=== PATIENT | female | born 1975 | race Caucasian/White ===

== ENCOUNTER 2017-07-10 10:45 | Emergency (ER) | payer SELFPAY ==
[2017-07-10] MEDS ORDERED: Ketorolac 60 MG/2 ML SDV IM ONE (11:08)
--- NOTE | 2017-07-10 11:27 | EDM.PDOC ---
ED HPI GENERAL MEDICAL PROBLEM - General Chief Complaint: Back Pain or Injury Stated Complaint: NOT FEELING WELL Time Seen by Provider: 07/10/17 11:06 - History of Present Illness INITIAL COMMENTS - FREE TEXT/NARRATIVE: HISTORY AND PHYSICAL: History of present illness: Patient 42-year-old female presents status post fall which injured her neck and lower back she denies any head trauma denies loss of consciousness denies numbness weakness denies incontinence or retention bowel or bladder or other concern Review of systems: As per history of present illness and below otherwise all systems reviewed and negative. Past medical history: As per history of present illness and as reviewed below otherwise noncontributory. Surgical history: As per history of present illness and as reviewed below otherwise noncontributory. Social history: No reported history of drug or alcohol abuse. Family history: As per history of present illness and as reviewed below otherwise noncontributory. Physical exam: HEENT: Atraumatic, normocephalic, pupils reactive, negative for conjunctival pallor or scleral icterus, mucous membranes moist, throat clear, neck supple, no vertebral body or point tenderness no cervical radiculopathy, trachea midline. Lungs: Clear to auscultation, breath sounds equal bilaterally, chest nontender. Heart: S1S2, regular, negative for clicks, rubs, or JVD. Abdomen: Soft, nondistended, nontender. Negative for masses or hepatosplenomegaly. Negative for costovertebral tenderness. Pelvis: Stable nontender. Genitourinary: Deferred. Rectal: Deferred. Extremities: Atraumatic, negative for cords or calf pain. Neurovascular unremarkable. Neuro: Awake, alert, oriented. Cranial nerves II through XII unremarkable. Cerebellum unremarkable. Motor and sensory unremarkable throughout. Exam nonfocal. Back: No vertebral body tenderness patient able stand on her toes back on her heels deep tendon reflexes are normal motor and sensory are normal Diagnostics: Cervical spine x-ray lumbosacral spine x-ray Therapeutics: Toradol 60 mg IM Impression: #1 observation status post fall #2 cervical strain #3 lumbar strain/contusion Definitive disposition and diagnosis as appropriate pending reevaluation and review of above. lower back, neck Pain Score (Numeric/FACES): 8 - Related Data Allergies Allergy/AdvReac Type Severity Reaction Status Date / Time No Known Allergies Allergy Verified 07/10/17 11:12 Home Meds: Home Meds Levothyroxine 07/10/17 [History] Metoprolol Succinate [Toprol XL] 07/10/17 [History] Spironolact/Hydrochlorothiazid [Spironolactone-HCTZ 25-25] 1 tab PO DAILY [History] Past Medical History Cardiovascular History: Reports: Hypertension Respiratory History: Reports: Other (See Below) Other Respiratory History: Lung Bx Endocrine/Metabolic History: Reports: Hypothyroidism - Past Surgical History HEENT Surgical History: Reports: Tonsillectomy, Other (See Below) Other HEENT Surgeries/Procedures: Throat GI Surgical History: Reports: Cholecystectomy Female Surgical History: Reports: Tubal Ligation Musculoskeletal Surgical History: Reports: Other (See Below) Other Musculoskeletal Surgeries/Procedures:: R Wrist Social & Family History - Family History Family Medical History: Noncontributory - Tobacco Use Smoking Status *Q: Never Smoker Second Hand Smoke Exposure: No - Caffeine Use Caffeine Use: Reports: Soda, Tea - Recreational Drug Use Recreational Drug Use: No ED ROS GENERAL - Review of Systems Review Of Systems: ROS reveals no pertinent complaints other than HPI. ED EXAM, GENERAL - Physical Exam Exam: See Below (See dictation) Course - Vital Signs Last Recorded V/S: Last Vital Signs Temp 36.4 C 07/10/17 11:10 Pulse 77 07/10/17 11:10 Resp 18 07/10/17 11:10 BP 140/79 07/10/17 11:10 Pulse Ox 97 07/10/17 11:10 - Orders/Labs/Meds Orders: Active Orders 24 hr Category Date Time Status Cervical Spine 2V or 3V [CR] Stat Exams 07/10/17 11:08 Ordered Lumbar Spine 2 or 3V [CR] Stat Exams 07/10/17 11:08 Ordered Meds: Medications Discontinued Medications Generic Name Dose Route Start Last Admin Trade Name Freq PRN Reason Stop Dose Admin Ketorolac Tromethamine 60 mg 07/10/17 11:08 07/10/17 11:21 Toradol IM 07/10/17 11:09 60 mg ONETIME ONE Administration Departure - Departure Time of Disposition: 11:26 Disposition: Home, Self-Care 01 Condition: Good Clinical Impression: Cervical strain, Contusion - Discharge Information Additional Instructions: The following information is given to patients seen in the emergency department who are being discharged to home. This information is to outline your options for follow-up care. We provide all patients seen in our emergency department with a follow-up referral. The need for follow-up, as well as the timing and circumstances, are variable depending upon the specifics of your emergency department visit. If you don't have a primary care physician on staff, we will provide you with a referral. We always advise you to contact your personal physician following an emergency department visit to inform them of the circumstance of the visit and for follow-up with them and/or the need for any referrals to a consulting specialist. The emergency department will also refer you to a specialist when appropriate. This referral assures that you have the opportunity for followup care with a specialist. All of these measure are taken in an effort to provide you with optimal care, which includes your followup. Under all circumstances we always encourage you to contact your private physician who remains a resource for coordinating your care. When calling for followup care, please make the office aware that this follow-up is from your recent emergency room visit. If for any reason you are refused follow-up, please contact the [facility] emergency department at and asked to speak to the emergency department charge nurse. Motrin/Tylenol as directed follow-up primary medical doctor 1-2 days return as needed as discussed - My Orders Last 24 Hours: My Active Orders 07/10/17 11:08 Cervical Spine 2V or 3V [CR] Stat Lumbar Spine 2 or 3V [CR] Stat - Assessment/Plan Last 24 Hours: My Active Orders 07/10/17 11:08 Cervical Spine 2V or 3V [CR] Stat Lumbar Spine 2 or 3V [CR] Stat
--- NOTE | 2017-07-10 11:52 | CR ---
EXAMINATION: Lumbar spine HISTORY: Pain COMPARISON: None TECHNIQUE: AP and lateral views FINDINGS: The lumbar spinal alignment is normal. The Vertebral body heights and disc spaces appear we ll-maintained. There is no fracture or acute osseous abnormality. SI joints are symmetric. IMPRESSION: Grossly unremarkable lumbar spine.
--- NOTE | 2017-07-10 11:52 | CR ---
EXAMINATION: Cervical spine HISTORY: Pain COMPARISON: None TECHNIQUE: AP and lateral views FINDINGS: Straightening of the normal cervical lordosis. Vertebral body heights appear maintained. Mo derate marginal osteophytes are noted. Bone mineralization is normal. Prevertebral soft tissues are n ormal. No fracture or acute osseous abnormality. IMPRESSION: Moderate degenerative changes noted within the mid cervical spine without acute findings.
== END 2017-07-10 12:29 | disposition home or self-care (01) ==
LOC: MW.ED 10:45
DX: S16.1XXA Strain of muscle, fascia and tendon at neck level, initial encounter (principal); S39.012A Strain of muscle, fascia and tendon of lower back, initial encounter; S30.0XXA Contusion of lower back and pelvis, initial encounter; I10 Essential (primary) hypertension; E03.9 Hypothyroidism, unspecified; Z79.899 Other long term (current) drug therapy; W19.XXXA Unspecified fall, initial encounter
CPT/HCPCS: 72040; 72100; 96372; 99283; J1885

== ENCOUNTER 2018-05-11 12:20 | Emergency (ER) | payer SELFPAY ==
[2018-05-11] MEDS ORDERED: methylPREDNISolone Sodium Succinate 40 MG/1 ML SDV IM ONE (12:34)
[2018-05-11] MEDS ORDERED: Albuterol/Ipratropium 3.0-0.5 MG/3 ML Neb Soln NEB ONE (12:34)
--- NOTE | 2018-05-11 12:36 | EDM.PDOC ---
ED HPI GENERAL MEDICAL PROBLEM - General Chief Complaint: Respiratory Problem Stated Complaint: BAD COUGH Time Seen by Provider: 05/11/18 12:31 - History of Present Illness INITIAL COMMENTS - FREE TEXT/NARRATIVE: HISTORY AND PHYSICAL: History of present illness: Patient's 42-year-old female history of sarcoidosis was been somewhat stable for approximately the past year presents with concern of cough congestion shortness of breath over last 24-48 hours she denies influenza immunization denies fever chills nausea or vomiting. Review of systems: As per history of present illness and below otherwise all systems reviewed and negative. Past medical history: As per history of present illness and as reviewed below otherwise noncontributory. Surgical history: As per history of present illness and as reviewed below otherwise noncontributory. Social history: No reported history of drug or alcohol abuse. Family history: As per history of present illness and as reviewed below otherwise noncontributory. Physical exam: HEENT: Atraumatic, normocephalic, pupils reactive, negative for conjunctival pallor or scleral icterus, mucous membranes moist, throat clear, neck supple, nontender, trachea midline. Lungs: Coarse with inspiratory and expiratory wheezing noted no crackles, breath sounds equal bilaterally, chest nontender. Heart: S1S2, regular, negative for clicks, rubs, or JVD. Abdomen: Soft, nondistended, nontender. Negative for masses or hepatosplenomegaly. Negative for costovertebral tenderness. Pelvis: Stable nontender. Genitourinary: Deferred. Rectal: Deferred. Extremities: Atraumatic, negative for cords or calf pain. Neurovascular unremarkable. Neuro: Awake, alert, oriented. Cranial nerves II through XII unremarkable. Cerebellum unremarkable. Motor and sensory unremarkable throughout. Exam nonfocal. Diagnostics: Influenza screen chest x-ray Therapeutics: Albuterol ipratropium nebulizer Solu-Medrol 125 mg IM Impression: #1 reactive airway disease #2 history of sarcoidosis Definitive disposition and diagnosis as appropriate pending reevaluation and review of above. - Related Data Allergies Allergy/AdvReac Type Severity Reaction Status Date / Time No Known Allergies Allergy Verified 07/10/17 11:12 Home Meds: Home Meds Levothyroxine 20 mg PO DAILY 07/10/17 [History] Metoprolol Succinate [Toprol XL] 40 mg PO DAILY 07/10/17 [History] Spironolact/Hydrochlorothiazid [Spironolactone-HCTZ 25-25] 1 tab PO DAILY [History] Past Medical History Cardiovascular History: Reports: Hypertension Respiratory History: Reports: Other (See Below) Other Respiratory History: Lung Bx Endocrine/Metabolic History: Reports: Hypothyroidism - Past Surgical History HEENT Surgical History: Reports: Tonsillectomy, Other (See Below) Other HEENT Surgeries/Procedures: Throat GI Surgical History: Reports: Cholecystectomy Female Surgical History: Reports: Tubal Ligation Musculoskeletal Surgical History: Reports: Other (See Below) Other Musculoskeletal Surgeries/Procedures:: R Wrist Social & Family History - Family History Family Medical History: Noncontributory - Caffeine Use Caffeine Use: Reports: Soda, Tea ED ROS GENERAL - Review of Systems Review Of Systems: ROS reveals no pertinent complaints other than HPI. ED EXAM, GENERAL - Physical Exam Exam: See Below (See dictation) Course - Vital Signs Last Recorded V/S: Last Vital Signs Temp 36.7 C 05/11/18 12:32 Pulse 91 05/11/18 12:32 Resp 18 05/11/18 12:32 BP 157/83 H 05/11/18 12:32 Pulse Ox 98 05/11/18 12:32 - Orders/Labs/Meds Orders: Active Orders 24 hr Category Date Time Status RT Aerosol Therapy [RC] ASDIRECTED Care 05/11/18 12:35 Active Meds: Medications Discontinued Medications Generic Name Dose Route Start Last Admin Trade Name Ulyssesq PRN Reason Stop Dose Admin Albuterol/Ipratropium 3 ml 05/11/18 12:34 05/11/18 12:40 Duoneb 3.0-0.5 Mg/3 Ml NEB 05/11/18 12:35 3 ml ONETIME ONE Administration Methylprednisolone Sodium Succinate 125 mg 05/11/18 12:34 05/11/18 12:44 Solu-Medrol IM 05/11/18 12:35 Not Given ONETIME ONE Methylprednisolone Sodium Succinate 125 mg 05/11/18 12:40 05/11/18 12:44 Solu-Medrol IVPUSH 05/11/18 12:41 Not Given ONETIME ONE Methylprednisolone Sodium Succinate 125 mg 05/11/18 12:44 05/11/18 12:53 Solu-Medrol IM 05/11/18 12:45 125 mg ONETIME ONE Administration Departure - Departure Time of Disposition: 13:44 Disposition: Home, Self-Care 01 Condition: Good Clinical Impression: Reactive airway disease, History of sarcoidosis - Discharge Information Referrals: Deandra Weaver NP [Primary Care Provider] - Forms: ED Department Discharge Additional Instructions: The following information is given to patients seen in the emergency department who are being discharged to home. This information is to outline your options for follow-up care. We provide all patients seen in our emergency department with a follow-up referral. The need for follow-up, as well as the timing and circumstances, are variable depending upon the specifics of your emergency department visit. If you don't have a primary care physician on staff, we will provide you with a referral. We always advise you to contact your personal physician following an emergency department visit to inform them of the circumstance of the visit and for follow-up with them and/or the need for any referrals to a consulting specialist. The emergency department will also refer you to a specialist when appropriate. This referral assures that you have the opportunity for followup care with a specialist. All of these measure are taken in an effort to provide you with optimal care, which includes your followup. Under all circumstances we always encourage you to contact your private physician who remains a resource for coordinating your care. When calling for followup care, please make the office aware that this follow-up is from your recent emergency room visit. If for any reason you are refused follow-up, please contact the [facility] emergency department at and asked to speak to the emergency department charge nurse. Albuterol Medrol as prescribed follow-up primary medical doctor return as needed as discussed - My Orders Last 24 Hours: My Active Orders 05/11/18 12:35 RT Aerosol Therapy [RC] ASDIRECTED - Assessment/Plan Last 24 Hours: My Active Orders 05/11/18 12:35 RT Aerosol Therapy [RC] ASDIRECTED
[2018-05-11] MEDS ORDERED: methylPREDNISolone Sodium Succinate 125 MG/2 ML SDV IVPUSH ONE (12:40)
[2018-05-11] MEDS ORDERED: methylPREDNISolone Sodium Succinate 125 MG/2 ML SDV IM ONE (12:44)
--- NOTE | 2018-05-11 13:29 | CR ---
INDICATION: PAIN/SOB TECHNIQUE: Chest 1 view. COMPARISON: None FINDINGS: Cardiovascular and mediastinum: Heart size and vasculature are normal in caliber and appearance. Mediastinum is within normal limits. Lungs and pleural space: Lungs are clear. No sign of infiltrate or mass. No sign of pleural effusion. No pneumothorax. Bones and soft tissues: No significant findings. IMPRESSION: Unremarkable chest. Dictated by: James Melgar MD @ 05/11/2018 13:28:46 (Electronically Signed)
== END 2018-05-11 14:31 | disposition home or self-care (01) ==
LOC: MW.ED 12:20
DX: J45.909 Unspecified asthma, uncomplicated (principal); I10 Essential (primary) hypertension; Z79.899 Other long term (current) drug therapy
CPT/HCPCS: 71045; 87804; 94640; 96372; 99284; J2930; J7620-GY

== ENCOUNTER 2018-10-12 16:35 | Emergency (ER) | payer BC, OTHER ==
[2018-10-12] MEDS ORDERED: Tetracaine HCl/PF 0.5% 4 ML Bottle ONE (16:51)
--- NOTE | 2018-10-12 16:59 | EDM.PDOC ---
ED HPI GENERAL MEDICAL PROBLEM - General Chief Complaint: ENT Problem Stated Complaint: RT EYE ISSUE Time Seen by Provider: 10/12/18 16:50 - History of Present Illness INITIAL COMMENTS - FREE TEXT/NARRATIVE: HISTORY AND PHYSICAL: History of present illness: Patient's 43-year-old white female presents with concern of irritation in her right eye she was working on a car earlier and was blowing significantly she feels this may have gotten something in her eye she did remove her contacts and still is residual irritation she does not have a foreign body sensation. Review of systems: As per history of present illness and below otherwise all systems reviewed and negative. Past medical history: As per history of present illness and as reviewed below otherwise noncontributory. Surgical history: As per history of present illness and as reviewed below otherwise noncontributory. Social history: No reported history of drug or alcohol abuse. Family history: As per history of present illness and as reviewed below otherwise noncontributory. Physical exam: HEENT: Atraumatic, normocephalic, pupils reactive, negative for conjunctival pallor or scleral icterus, mucous membranes moist, throat clear, neck supple, nontender, trachea midline. Conjunctiva is injected anterior chambers clear there is no evidence of foreign body lid eversion was negative for foreign body corneal staining was negative for abrasion Lungs: Clear to auscultation, breath sounds equal bilaterally, chest nontender. Heart: S1S2, regular, negative for clicks, rubs, or JVD. Abdomen: Soft, nondistended, nontender. Negative for masses or hepatosplenomegaly. Negative for costovertebral tenderness. Pelvis: Stable nontender. Genitourinary: Deferred. Rectal: Deferred. Extremities: Atraumatic, negative for cords or calf pain. Neurovascular unremarkable. Neuro: Awake, alert, oriented. Cranial nerves II through XII unremarkable. Cerebellum unremarkable. Motor and sensory unremarkable throughout. Exam nonfocal. Diagnostics: Corneal staining Therapeutics: Tetracaine irrigation erythromycin ophthalmic ointment Impression: #1 conjunctivitis Definitive disposition and diagnosis as appropriate pending reevaluation and review of above. Right Eye Pain Score (Numeric/FACES): 10 - Related Data Allergies Allergy/AdvReac Type Severity Reaction Status Date / Time No Known Allergies Allergy Verified 07/10/17 11:12 Home Meds: Home Meds Levothyroxine 20 mg PO DAILY 07/10/17 [History] Metoprolol Succinate [Toprol XL] 40 mg PO DAILY 07/10/17 [History] Past Medical History Cardiovascular History: Reports: Hypertension Respiratory History: Reports: Other (See Below) Other Respiratory History: Lung Bx Endocrine/Metabolic History: Reports: Hypothyroidism - Past Surgical History HEENT Surgical History: Reports: Tonsillectomy, Other (See Below) Other HEENT Surgeries/Procedures: Throat GI Surgical History: Reports: Cholecystectomy Female Surgical History: Reports: Tubal Ligation Musculoskeletal Surgical History: Reports: Other (See Below) Other Musculoskeletal Surgeries/Procedures:: R Wrist Social & Family History - Family History Family Medical History: Noncontributory - Tobacco Use Smoking Status *Q: Never Smoker Second Hand Smoke Exposure: No - Caffeine Use Caffeine Use: Reports: Soda - Recreational Drug Use Recreational Drug Use: No ED ROS GENERAL - Review of Systems Review Of Systems: ROS reveals no pertinent complaints other than HPI. ED EXAM, GENERAL - Physical Exam Exam: See Below (See dictation) Course - Vital Signs Last Recorded V/S: Last Vital Signs Temp 36.2 C 10/12/18 16:38 Pulse 90 10/12/18 16:38 Resp 18 10/12/18 16:38 BP 155/92 H 10/12/18 16:38 Pulse Ox 95 10/12/18 16:38 - Orders/Labs/Meds Meds: Medications Discontinued Medications Generic Name Dose Route Start Last Admin Trade Name Trupti PRN Reason Stop Dose Admin Tetracaine HCl Confirm 10/12/18 16:51 Tetracaine 0.5% Steri-Unit Katie Administered 10/12/18 16:52 Dose 4 ml .ROUTE .STK-MED ONE Departure - Departure Time of Disposition: 16:58 Disposition: Home, Self-Care 01 Condition: Good Clinical Impression: Conjunctivitis - Discharge Information Referrals: Deandra Weaver NP [Primary Care Provider] - Additional Instructions: The following information is given to patients seen in the emergency department who are being discharged to home. This information is to outline your options for follow-up care. We provide all patients seen in our emergency department with a follow-up referral. The need for follow-up, as well as the timing and circumstances, are variable depending upon the specifics of your emergency department visit. If you don't have a primary care physician on staff, we will provide you with a referral. We always advise you to contact your personal physician following an emergency department visit to inform them of the circumstance of the visit and for follow-up with them and/or the need for any referrals to a consulting specialist. The emergency department will also refer you to a specialist when appropriate. This referral assures that you have the opportunity for followup care with a specialist. All of these measure are taken in an effort to provide you with optimal care, which includes your followup. Under all circumstances we always encourage you to contact your private physician who remains a resource for coordinating your care. When calling for followup care, please make the office aware that this follow-up is from your recent emergency room visit. If for any reason you are refused follow-up, please contact the [facility] emergency department at and asked to speak to the emergency department charge nurse. [facility] [address] [place] [address] Erythromycin ophthalmic ointment as directed no contact lenses until resolution and ophthalmology follow-up follow-up private medical doctor/ophthalmology as discussed
[2018-10-12] MEDS ORDERED: Tetracaine HCl/PF 0.5% 4 ML Bottle EYERT STA (17:03)
[2018-10-12] MEDS ORDERED: Erythromycin Base 0.5% Ophth Oint 1 GM Tube EYERT ONE (17:03)
== END 2018-10-12 17:18 | disposition home or self-care (01) ==
LOC: MW.ED 16:35
DX: H10.9 Unspecified conjunctivitis (principal); I10 Essential (primary) hypertension; E03.9 Hypothyroidism, unspecified; Z79.899 Other long term (current) drug therapy
CPT/HCPCS: 99283; A9270

== ENCOUNTER 2019-07-08 10:12 | Emergency (ER) | payer BC ==
[2019-07-08] MEDS ORDERED: Albuterol 8 GM Inhaler INH ONE (10:14)
--- NOTE | 2019-07-08 10:39 | EDM.PDOC ---
ED HPI GENERAL MEDICAL PROBLEM - General Chief Complaint: Respiratory Problem Stated Complaint: COUGHING Time Seen by Provider: 07/08/19 10:28 Source of Information: Reports: Patient History Limitations: Reports: No Limitations - History of Present Illness INITIAL COMMENTS - FREE TEXT/NARRATIVE: Patient is a 43-year-old female with a past medical history of sarcoidosis presenting with a chief complaint of cough and shortness of breath. Patient states that she had some mild coughing last week and was tested for coronavirus which came back negative. However, she did never have fevers until last night. Patient states she felt like she was on fire and had worsening of her cough and shortness of breath. Patient went to the clinic this morning and was sent to the emergency room for tachypnea. Patient states she has no sore throat or body aches. Patient denies any vomiting or diarrhea. Patient denies any recent travel or sick contact exposure. Pmhx: Sarcoidosis Pshx: None Family Hx: noncontributory Smoking history? no Etoh use? none Drug use? none In addition to that documented in the HPI above, the additional ROS was obtained : Constitutional: Per HPI Eyes: Denies vision changes ENMT: Denies sore throat CV: Denies chest pain Resp: Per HPI GI: Denies vomiting or diarrhea : Denies painful urination MSK: Denies recent trauma Skin: Denies new rashes Neuro: Denies new numbness or tingling or weakness Endocrine: Denies unexpected weight loss Heme: Denies bleeding disorders I have reviewed the triage vital signs Const: Well nourished, well developed, appears stated age Eyes: PERRL, no conjunctival injection HENT: NCAT, Neck supple without meningismus CV: RRR, Warm, well-perfused extremities RESP: Slight increased work of breathing with no accessory muscle usage. Some scant bilateral wheezes. GI: soft, non-tender, non-distended, no masses MSK: No gross deformities appreciated Skin: Warm, dry. No rashes Neuro: Alert, sales support advisor II-XII grossly intact. Sensation and motor function of extremities grossly intact. Psych: Appropriate mood and affect Assessment and plan: Patient is a 43-year-old female presenting with shortness of breath and cough. Patient afebrile in the emergency department. Patient's labs were reviewed with elevation of CRP and slight leukopenia. There is no evidence of lymphopenia. Patient had a negative chest x-ray. Patient was rating breathing at a rate of 18-20 at rest and slight increased work of breathing to 20-24 which is complicated by coughing fits. Patient was never hypoxic with ambulation or with rest. Patient never required supplemental oxygenation. Broad differential diagnosis considered however patient is PERC negative. Considerations for community-acquired pneumonia versus viral pneumonia are also strong possibilities however given the patient is not hypoxic and is not demonstrating significant increasing work of breathing, patient is a candidate for outpatient management. Shared decision-making was used with observation in the hospital versus outpatient management, risks and benefits were explained. Patient preferred being treated as an outpatient and states she will come back immediately if symptoms worsen. It is possible this is related to the coronavirus however testing was negative last week. I did repeat testing given that the patient spiked fevers last night and is at slightly higher risk with the sarcoidosis. All questions were addressed and answered. Chest Pain Score (Numeric/FACES): 6 - Related Data Allergies Allergy/AdvReac Type Severity Reaction Status Date / Time adhesive tape Allergy Blisters Verified 07/08/19 10:25 Home Meds: Home Meds Levothyroxine [Synthroid] 50 mcg PO ACBREAKFAST 11/28/18 [History] Lisinopril 20 mg PO DAILY 11/28/18 [History] hydroCHLOROthiazide [Hydrochlorothiazide] 25 mg PO DAILY 11/28/18 [History] Albuterol [Ventolin HFA] 8 gm INH ASDIRECTED 07/08/19 [History] Azithromycin 250 mg PO DAILY #5 tablet 07/08/19 [Rx] Benzonatate [Tessalon Perle] 100 mg PO BID #30 capsule 07/08/19 [Rx] metFORMIN [Glucophage] 500 mg PO DAILY 07/08/19 [History] Past Medical History Cardiovascular History: Reports: Hypertension Musculoskeletal History: Reports: Fracture Endocrine/Metabolic History: Reports: Hypothyroidism - Infectious Disease History Infectious Disease History: Reports: Chicken Pox - Past Surgical History HEENT Surgical History: Reports: Tonsillectomy Respiratory Surgical History: Reports: Lung Biopsies GI Surgical History: Reports: Cholecystectomy Social & Family History - Family History Family Medical History: Noncontributory - Caffeine Use Caffeine Use: Reports: None ED ROS GENERAL - Review of Systems Review Of Systems: See Below ED EXAM, GENERAL - Physical Exam Exam: See Below Course - Vital Signs Last Recorded V/S: Last Vital Signs Temp 36.0 C L 07/08/19 10:19 Pulse 98 07/08/19 10:19 Resp 26 H 07/08/19 10:19 BP 117/84 07/08/19 10:19 Pulse Ox 98 07/08/19 10:19 - Orders/Labs/Meds Orders: Active Orders 24 hr Category Date Time Status RT Post Treatment Assessment [RC] Click to Edit Care 07/08/19 10:15 Active RT Pre-Treatment Assessment [RC] Click to Edit Care 07/08/19 10:15 Active CORONAVIRUS COVID-19 PCR PHL [MREF] Stat Lab 07/08/19 10:35 Received CULTURE BLOOD [BC] Stat Lab 07/08/19 10:35 Received CULTURE BLOOD [BC] Stat Lab 07/08/19 11:00 Received PROCALCITONIN [REF] Stat Lab 07/08/19 10:35 Received Blood Culture x2 Reflex Set [OM.PC] Stat Oth 07/08/19 10:24 Ordered Isolation [COMM] Routine Oth 07/08/19 10:27 Active Labs: Laboratory Tests 07/08/19 07/08/19 Range/Units 10:35 10:35 WBC 3.24 L (4.0-11.0) K/uL RBC 4.35 (4.30-5.90) M/uL Hgb 11.4 L (12.0-16.0) g/dL Hct 35.9 L (36.0-46.0) % MCV 82.5 (80.0-98.0) fL MCH 26.2 L (27.0-32.0) pg MCHC 31.8 (31.0-37.0) g/dL RDW Std Deviation 46.7 (28.0-62.0) fl RDW Coeff of Willie 15 (11.0-15.0) % Plt Count 290 (150-400) K/uL MPV 10.10 (7.40-12.00) fL Add Manual Diff YES Neutrophils % (Manual) 22 L (48.0-80.0) % Band Neutrophils % 2 % Lymphocytes % (Manual) 44 H (16.0-40.0) % Monocytes % (Manual) 25 H (0.0-15.0) % Eosinophils % (Manual) 6 (0.0-7.0) % Basophils % (Manual) 1 (0.0-1.5) % Nucleated RBC % 0.0 /100WBC Absolute Seg Neuts 0.7 L (1.4-5.7) Band Neutrophils # 0.1 Lymphocytes # (Manual) 1.4 (0.6-2.4) Monocytes # (Manual) 0.8 (0.0-0.8) Eosinophils # (Manual) 0.2 (0.0-0.7) Basophils # (Manual) 0.0 (0.0-0.1) Nucleated RBCs # 0 K/uL Sodium 139 (136-145) mmol/L Potassium 4.1 (3.5-5.1) mmol/L Chloride 104 (98-107) mmol/L Carbon Dioxide 23.9 (21.0-32.0) mmol/L BUN 13 (7.0-18.0) mg/dL Creatinine 0.7 (0.6-1.0) mg/dL Est Cr Clr Drug Dosing 85.72 mL/min Estimated GFR (MDRD) > 60.0 ml/min Glucose 91 (74-106) mg/dL Calcium 8.7 (8.5-10.1) mg/dL Total Bilirubin 0.4 (0.2-1.0) mg/dL AST 36 (15-37) IU/L ALT 34 (14-63) IU/L Alkaline Phosphatase 64 (46-116) U/L Troponin I < 0.050 (0.000-0.056) ng/mL C-Reactive Protein 4.50 H (0.00-0.90) mg/dL Total Protein 7.2 (6.4-8.2) g/dL Albumin 3.8 (3.4-5.0) g/dL Globulin 3.4 (2.6-4.0) g/dL Albumin/Globulin Ratio 1.1 (0.9-1.6) Meds: Medications Discontinued Medications Generic Name Dose Route Start Last Admin Trade Name Freq PRN Reason Stop Dose Admin Albuterol 2 gm 07/08/19 10:14 07/08/19 10:29 Ventolin Hfa INH 07/08/19 10:15 2 gm ONETIME ONE Administration Departure - Departure Time of Disposition: 12:28 Disposition: Home, Self-Care 01 Clinical Impression: Viral pneumonia - Discharge Information Prescriptions: Azithromycin 250 mg PO DAILY #5 tablet Benzonatate [Tessalon Perle] 100 mg PO BID #30 capsule Instructions: Viral Respiratory Infection Referrals: PCP,Unobtain [Primary Care Provider] - Forms: ED Department Discharge Additional Instructions: The following information is given to patients seen in the emergency department who are being discharged to home. This information is to outline your options for follow-up care. We provide all patients seen in our emergency department with a follow-up referral. The need for follow-up, as well as the timing and circumstances, are variable depending upon the specifics of your emergency department visit. If you don't have a primary care physician on staff, we will provide you with a referral. We always advise you to contact your personal physician following an emergency department visit to inform them of the circumstance of the visit and for follow-up with them and/or the need for any referrals to a consulting specialist. The emergency department will also refer you to a specialist when appropriate. This referral assures that you have the opportunity for follow-up care with a specialist. All of these measure are taken in an effort to provide you with optimal care, which includes your follow-up. Under all circumstances we always encourage you to contact your private physician who remains a resource for coordinating your care. When calling for follow-up care, please make the office aware that this follow-up is from your recent emergency room visit. If for any reason you are refused follow-up, please contact the [facility] Emergency Department at and asked to speak to the emergency department charge nurse. Sepsis Event Note - Evaluation Sepsis Screening Result: Possible Sepsis Risk - Focused Exam Vital Signs: Vital Signs Temp Pulse Resp BP Pulse Ox 07/08/19 10:19 36.0 C L 98 26 H 117/84 98 Date Exam was Performed: 07/08/19 Time Exam was Performed: 12:25 - My Orders Last 24 Hours: My Active Orders 07/08/19 10:15 RT Post Treatment Assessment [RC] Click to Edit RT Pre-Treatment Assessment [RC] Click to Edit 07/08/19 10:24 Blood Culture x2 Reflex Set [OM.PC] Stat 07/08/19 10:27 Isolation [COMM] Routine 07/08/19 10:35 CORONAVIRUS COVID-19 PCR PHL [MREF] Stat CULTURE BLOOD [BC] Stat PROCALCITONIN [REF] Stat 07/08/19 11:00 CULTURE BLOOD [BC] Stat - Assessment/Plan Last 24 Hours: My Active Orders 07/08/19 10:15 RT Post Treatment Assessment [RC] Click to Edit RT Pre-Treatment Assessment [RC] Click to Edit 07/08/19 10:24 Blood Culture x2 Reflex Set [OM.PC] Stat 07/08/19 10:27 Isolation [COMM] Routine 07/08/19 10:35 CORONAVIRUS COVID-19 PCR PHL [MREF] Stat CULTURE BLOOD [BC] Stat PROCALCITONIN [REF] Stat 07/08/19 11:00 CULTURE BLOOD [BC] Stat
[2019-07-08 11:29] LABS: BLOOD UREA NITROGEN,BUN 13 mg/dL (7.0-18.0); CARBON DIOXIDE,CO2 23.9 mmol/L (21.0-32.0); CHLORIDE,CL 104 mmol/L (98-107); GLUCOSE RANDOM 91 mg/dL (74-106); POTASSIUM,K 4.1 mmol/L (3.5-5.1); SODIUM,NA 139 mmol/L (136-145)
--- NOTE | 2019-07-08 11:37 | CR ---
Chest: Portable view of the chest was obtained. Comparison: No prior chest imaging is available. Heart size and mediastinum are within normal limits. Lungs are clear with no acute parenchymal change. Bony structures are grossly intact. Impression: 1. Nothing acute is appreciated on portable chest x-ray. Diagnostic code #1 This report was dictated in MDT
== END 2019-07-08 12:33 | disposition home or self-care (01) ==
LOC: MERGE 10:12 → MW.ED 10:12
DX: J12.9 Viral pneumonia, unspecified (principal); I10 Essential (primary) hypertension; E03.9 Hypothyroidism, unspecified; Z79.899 Other long term (current) drug therapy
CPT/HCPCS: 36415; 71045; 80053; 84145; 84484; 85025; 86140; 87040; 87804; 99285; A9270; U0001

== ENCOUNTER 2019-07-10 15:48 | Emergency (ER) | payer BC ==
[2019-07-10] MEDS ORDERED: Sodium Chloride 0.9% 1,000 ML IV ONE (16:09)
--- NOTE | 2019-07-10 16:13 | EDM.PDOC ---
ED HPI GENERAL MEDICAL PROBLEM - General Chief Complaint: Respiratory Problem Stated Complaint: DRY COUGH / SOB Time Seen by Provider: 07/10/19 16:13 Source of Information: Reports: Patient History Limitations: Reports: No Limitations - History of Present Illness INITIAL COMMENTS - FREE TEXT/NARRATIVE: Patient is a 44-year-old female presenting with chief complaint of cough and shortness of breath. Patient was seen here 2 days ago for similar symptoms. Patient reports compliance with the Tessalon and the Zithromax without any improvement of her symptoms. In fact, her shortness of breath is continued to worsen. She denies any vomiting or diarrhea. Reports subjective fevers. Patient has been tested twice for coronavirus which have both been negative. Patient was on the phone with her primary care physician who urged her to come into the emergency department today. Pmhx: Sarcoidosis Pshx: None Family Hx: noncontributory Smoking history? no Etoh use? none Drug use? none In addition to that documented in the HPI above, the additional ROS was obtained : Constitutional: Per HPI Eyes: Denies vision changes ENMT: Denies sore throat CV: Denies chest pain Resp: Per HPI GI: Denies vomiting or diarrhea : Denies painful urination MSK: Denies recent trauma Skin: Denies new rashes Neuro: Denies new numbness or tingling or weakness Endocrine: Denies unexpected weight loss Heme: Denies bleeding disorders I have reviewed the triage vital signs Const: Well nourished, well developed, appears stated age Eyes: PERRL, no conjunctival injection HENT: NCAT, Neck supple without meningismus CV: RRR, Warm, well-perfused extremities RESP: Mildly tachypneic. CTAB, no accessory muscle usage GI: soft, non-tender, non-distended, no masses MSK: No gross deformities appreciated Skin: Warm, dry. 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 Sensation and motor function of extremities grossly intact. Psych: Appropriate mood and affect Assessment and plan: Patient here is 44-year-old female complaining of cough. Shortness of breath is clarified on reexamination. Patient states she primarily feels this at night when she is lying flat on her back. Patient only has 1 pillow. Patient does feel a lot of postnasal drip going to the back of her throat making her cough. Coughing with makes her short of breath. Patient not short of breath when she does not cough. Performed chest x-ray and CT scan which did not demonstrate evidence of pneumonia. Patient's coronavirus has been negative twice. Likely upper respiratory tract infection. Patient given supportive release and instructed on symptomatic care. - Related Data Allergies Allergy/AdvReac Type Severity Reaction Status Date / Time adhesive tape Allergy Blisters Verified 07/08/19 10:25 Home Meds: Home Meds Levothyroxine 20 mg PO DAILY 07/10/17 [History] Metoprolol Succinate [Toprol XL] 40 mg PO DAILY 07/10/17 [History] Levothyroxine [Synthroid] 50 mcg PO ACBREAKFAST 11/28/18 [History] Lisinopril 20 mg PO DAILY 11/28/18 [History] hydroCHLOROthiazide [Hydrochlorothiazide] 25 mg PO DAILY 11/28/18 [History] Albuterol [Ventolin HFA] 8 gm INH ASDIRECTED 07/08/19 [History] Azithromycin 250 mg PO DAILY #5 tablet 07/08/19 [Rx] Benzonatate [Tessalon Perle] 100 mg PO BID #30 capsule 07/08/19 [Rx] metFORMIN [Glucophage] 500 mg PO DAILY 07/08/19 [History] Codeine Phosphate/Guaifenesin [Guaifen-Codeine 200-20 mg/10Ml] 10 ml PO QPM # 100 liquid 07/10/19 [Rx] Oxymetazoline [Nasal Decongestant] 15 ml BIANCA Q12HR #1 bottle 07/10/19 [Rx] guaiFENesin [Mucinex] 600 mg PO BID #20 tab.er.12h 07/10/19 [Rx] Past Medical History Cardiovascular History: Reports: Hypertension Other Respiratory History: 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." Musculoskeletal History: Reports: Fracture Endocrine/Metabolic History: Reports: Hypothyroidism - Infectious Disease History Infectious Disease History: Reports: Chicken Pox - Past Surgical History HEENT Surgical History: Reports: Tonsillectomy Respiratory Surgical History: Reports: Lung Biopsies GI Surgical History: Reports: Cholecystectomy Social & Family History - Family History Family Medical History: Noncontributory - Tobacco Use Smoking Status *Q: Never Smoker - Caffeine Use Caffeine Use: Reports: None - Recreational Drug Use Recreational Drug Use: No ED ROS GENERAL - Review of Systems Review Of Systems: See Below ED EXAM, GENERAL - Physical Exam Exam: See Below Course - Vital Signs Last Recorded V/S: Last Vital Signs Temp 36.1 C 07/10/19 16:01 Pulse 78 07/10/19 18:43 Resp 17 07/10/19 18:43 BP 105/64 07/10/19 18:43 Pulse Ox 98 07/10/19 18:43 - Orders/Labs/Meds Labs: Laboratory Tests 07/10/19 07/10/19 07/10/19 Range/Units 16:43 16:43 17:24 WBC 3.47 L (4.0-11.0) K/uL RBC 4.22 L (4.30-5.90) M/uL Hgb 11.0 L (12.0-16.0) g/dL Hct 34.5 L (36.0-46.0) % MCV 81.8 (80.0-98.0) fL MCH 26.1 L (27.0-32.0) pg MCHC 31.9 (31.0-37.0) g/dL RDW Std Deviation 45.8 (28.0-62.0) fl RDW Coeff of Willie 15 (11.0-15.0) % Plt Count 322 (150-400) K/uL MPV 10.30 (7.40-12.00) fL Add Manual Diff YES Neutrophils % (Manual) 15 L (48.0-80.0) % Band Neutrophils % 3 % Lymphocytes % (Manual) 57 H (16.0-40.0) % Monocytes % (Manual) 23 H (0.0-15.0) % Eosinophils % (Manual) 2 (0.0-7.0) % Nucleated RBC % 0.0 /100WBC Absolute Seg Neuts 0.5 L (1.4-5.7) Band Neutrophils # 0.1 Lymphocytes # (Manual) 2.0 (0.6-2.4) Monocytes # (Manual) 0.8 (0.0-0.8) Eosinophils # (Manual) 0.1 (0.0-0.7) Nucleated RBCs # 0 K/uL Lactate 1.2 (0.20-2.00) mmol/L Sodium 142 (136-145) mmol/L Potassium 4.1 (3.5-5.1) mmol/L Chloride 105 (98-107) mmol/L Carbon Dioxide 27.1 (21.0-32.0) mmol/L BUN 15 (7.0-18.0) mg/dL Creatinine 0.6 (0.6-1.0) mg/dL Est Cr Clr Drug Dosing 98.98 mL/min Estimated GFR (MDRD) > 60.0 ml/min Glucose 100 (74-106) mg/dL Calcium 8.9 (8.5-10.1) mg/dL Total Bilirubin 0.3 (0.2-1.0) mg/dL AST 32 (15-37) IU/L ALT 37 (14-63) IU/L Alkaline Phosphatase 71 (46-116) U/L Total Protein 6.9 (6.4-8.2) g/dL Albumin 3.9 (3.4-5.0) g/dL Globulin 3.0 (2.6-4.0) g/dL Albumin/Globulin Ratio 1.3 (0.9-1.6) Meds: Medications Discontinued Medications Generic Name Dose Route Start Last Admin Trade Name Freq PRN Reason Stop Dose Admin Sodium Chloride 1,000 mls @ 1,000 mls/hr 07/10/19 16:09 07/10/19 16:40 Normal Saline IV 07/10/19 17:08 1,000 mls/hr .Bolus ONE Administration Departure - Departure Time of Disposition: 18:11 Disposition: Home, Self-Care 01 Clinical Impression: URI (upper respiratory infection) - Discharge Information Prescriptions: Oxymetazoline [Nasal Decongestant] 15 ml BIANCA Q12HR #1 bottle Codeine Phosphate/Guaifenesin [Guaifen-Codeine 200-20 mg/10Ml] 10 ml PO QPM # 100 liquid guaiFENesin [Mucinex] 600 mg PO BID #20 tab.er.12h Instructions: Upper Respiratory Infection, Adult, [id number] Referrals: Liya Lopes MD [Primary Care Provider] - Forms: ED Department Discharge Additional Instructions: The following information is given to patients seen in the emergency department who are being discharged to home. This information is to outline your options for follow-up care. We provide all patients seen in our emergency department with a follow-up referral. The need for follow-up, as well as the timing and circumstances, are variable depending upon the specifics of your emergency department visit. If you don't have a primary care physician on staff, we will provide you with a referral. We always advise you to contact your personal physician following an emergency department visit to inform them of the circumstance of the visit and for follow-up with them and/or the need for any referrals to a consulting specialist. The emergency department will also refer you to a specialist when appropriate. This referral assures that you have the opportunity for follow-up care with a specialist. All of these measure are taken in an effort to provide you with optimal care, which includes your follow-up. Under all circumstances we always encourage you to contact your private physician who remains a resource for coordinating your care. When calling for follow-up care, please make the office aware that this follow-up is from your recent emergency room visit. If for any reason you are refused follow-up, please contact the [facility] Emergency Department at and asked to speak to the emergency department charge nurse. Sepsis Event Note - Evaluation Sepsis Screening Result: Possible Sepsis Risk - Focused Exam Date Exam was Performed: 07/12/19 Time Exam was Performed: 04:26
--- NOTE | 2019-07-10 16:40 | CR ---
Chest: 2 views of the chest were obtained. Comparison: Prior chest x-ray of 07/08/19. Heart size and mediastinum are normal. Lungs are clear with no acute parenchymal change. Bony structures are unremarkable. Surgical clips are seen from prior cholecystectomy. Impression: 1. Nothing acute is appreciated on 2 view chest x-ray. Diagnostic code #1 Study was dictated in MDT
[2019-07-10 17:38] LABS: BLOOD UREA NITROGEN,BUN 15 mg/dL (7.0-18.0); CARBON DIOXIDE,CO2 27.1 mmol/L (21.0-32.0); CHLORIDE,CL 105 mmol/L (98-107); GLUCOSE RANDOM 100 mg/dL (74-106); POTASSIUM,K 4.1 mmol/L (3.5-5.1); SODIUM,NA 142 mmol/L (136-145)
--- NOTE | 2019-07-10 18:00 | CT ---
CT chest Technique: Multiple axial sections through the chest were obtained. Intravenous contrast was not utilized. Comparison: Prior chest x-ray of 05/11/18. Findings: Mediastinum and hilar regions show no adenopathy. Minimal coronary artery calcification is noted. No pericardial thickening is seen. Multiple lymph nodes are seen within the axillary regions which show fatty hilum and are likely within normal limits. Surgical clips are seen from prior cholecystectomy. Lungs are clear. No acute parenchymal change is seen. No pleural effusions or pneumothorax is seen. Bone window settings were reviewed which shows no acute osseous finding. Impression: 1. Nothing acute is seen on noncontrast chest CT study. Diagnostic code #1 Study was dictated in MDT
== END 2019-07-10 18:49 | disposition home or self-care (01) ==
LOC: MW.ED 15:48 → MERGE 15:48 → MW.ED 18:49
DX: J06.9 Acute upper respiratory infection, unspecified (principal); I10 Essential (primary) hypertension; Z91.048 Other nonmedicinal substance allergy status
CPT/HCPCS: 71046; 71250; 80053; 83605; 85025; 87040; 96360; 99285; J7030

== ENCOUNTER 2019-11-23 20:49 | Emergency (ER) | payer BC, OTHER ==
[2019-11-23] MEDS ORDERED: Ketorolac 30 MG/ML SDV IVPUSH ONE (21:14)
[2019-11-23] MEDS ORDERED: Sodium Chloride 0.9% 1,000 ML IV ONE (21:14)
[2019-11-23] MEDS ORDERED: Dexamethasone 4 MG Tab PO ONE (21:19)
--- NOTE | 2019-11-23 21:19 | EDM.PDOC ---
<Sergey Michael Yoni - Last Filed: 11/24/19 02:15> ED HPI GENERAL MEDICAL PROBLEM - General Stated Complaint: NOT FEELING WELL, COUGH, MIGRAINE Time Seen by Provider: 11/23/19 21:04 - Related Data Allergies Allergy/AdvReac Type Severity Reaction Status Date / Time adhesive tape Allergy Blisters Verified 07/08/19 10:25 Home Meds: Home Meds Levothyroxine 20 mg PO DAILY 07/10/17 [History] Metoprolol Succinate [Toprol XL] 40 mg PO DAILY 07/10/17 [History] Levothyroxine [Synthroid] 50 mcg PO ACBREAKFAST 11/28/18 [History] Lisinopril 20 mg PO DAILY 11/28/18 [History] hydroCHLOROthiazide [Hydrochlorothiazide] 25 mg PO DAILY 11/28/18 [History] Albuterol [Ventolin HFA] 8 gm INH ASDIRECTED 07/08/19 [History] Azithromycin 250 mg PO DAILY #5 tablet 07/08/19 [Rx] Benzonatate [Tessalon Perle] 100 mg PO BID #30 capsule 07/08/19 [Rx] metFORMIN [Glucophage] 500 mg PO DAILY 07/08/19 [History] Codeine Phosphate/Guaifenesin [Guaifen-Codeine 200-20 mg/10Ml] 10 ml PO QPM #100 liquid 07/10/19 [Rx] Oxymetazoline [Nasal Decongestant] 15 ml BIANCA Q12HR #1 bottle 07/10/19 [Rx] guaiFENesin [Mucinex] 600 mg PO BID #20 tab.er.12h 07/10/19 [Rx] ED ROS GENERAL - Review of Systems Review Of Systems: See Below ED EXAM, GENERAL - Physical Exam Exam: See Below Course - Re-Assessments/Exams Free Text/Narrative Re-Assessment/Exam: 11/24/19 02:14 COVID screening negative, CXR unremarkable. Patient instructed that COVID screening test is not 100% accurate and she may indeed have COVID infection. Urged to self isolate and to return to ED For worsening SOB or CP. vitals remain normal Departure - Departure Time of Disposition: 23:34 Disposition: Home, Self-Care 01 Condition: Good Clinical Impression: Bronchitis - Discharge Information Instructions: Acute Bronchitis, Adult, [id number] Referrals: Liya Lopes MD [Primary Care Provider] - Forms: ED Department Discharge Additional Instructions: The following information is given to patients seen in the emergency department who are being discharged to home. This information is to outline your options for follow-up care. We provide all patients seen in our emergency department with a follow-up referral. The need for follow-up, as well as the timing and circumstances, are variable depending upon the specifics of your emergency department visit. If you don't have a primary care physician on staff, we will provide you with a referral. We always advise you to contact your personal physician following an emergency department visit to inform them of the circumstance of the visit and for follow-up with them and/or the need for any referrals to a consulting specialist. The emergency department will also refer you to a specialist when appropriate. This referral assures that you have the opportunity for follow-up care with a specialist. All of these measure are taken in an effort to provide you with optimal care, which includes your follow-up. Under all circumstances we always encourage you to contact your private physician who remains a resource for coordinating your care. When calling for follow-up care, please make the office aware that this follow-up is from your recent emergency room visit. If for any reason you are refused follow-up, please contact the [facility] Emergency Department at and asked to speak to the emergency department charge nurse. <Ragini Quijano E - Last Filed: 11/24/19 09:59> ED HPI GENERAL MEDICAL PROBLEM - General Source of Information: Reports: Patient History Limitations: Reports: No Limitations - History of Present Illness INITIAL COMMENTS - FREE TEXT/NARRATIVE: HISTORY AND PHYSICAL: History of present illness: Patient is a 44-year-old female who presents to the emergency room with complaints of body aches, headache and cough x3 days. Patient recently was in [place] for 10 days and had traveled via flight. On her flight home on Sunday she was sitting next to several people who were coughing and had been vomiting. She states when she got home she started to feel generalized body aches and a mild headache which progressively gotten worse. Describes headache as a dull nagging sensation, does not describe it as the worst headache of her life. No light sensitivity or noise sensitivity associated with this. She has no difficulty with speech, weakness, or deficits noted. Yesterday she developed a dry nonproductive cough with subjective fever and chills. She has been using [id number] Tylenol without much relief. Patient denies any change in vision, syncope or near syncope. Denies any chest pain, back pain, shortness of breath or cough. Denies any abdominal pain, nausea, vomiting, diarrhea, constipation or dysuria. Has not noted any blood in urine or stool. Patient has been eating and drinking appropriately. Review of systems: As per history of present illness and below otherwise all systems reviewed and negative. Past medical history: As per history of present illness and as reviewed below otherwise noncontributory. Surgical history: As per history of present illness and as reviewed below otherwise noncontributory. Social history: See social history for further information Family history: As per history of present illness and as reviewed below otherwise noncontributory. Physical exam: General: Well-developed and well-nourished 44-year-old female. Alert and oriented. Nontoxic-appearing and in no acute distress. Patient's vital signs are stable and have been reviewed by me. HEENT: Atraumatic, normocephalic, pupils equal and reactive bilaterally, negative for conjunctival pallor or scleral icterus, mucous membranes moist, TMs normal bilaterally, throat clear, neck supple, nontender, trachea midline. No drooling or trismus noted. No meningeal signs. No hot potato voice noted. Lungs: Fine expiratory wheezing noted on end expiration bilaterally, breath sounds equal bilaterally, chest nontender. Dry nonproductive cough is noted. Heart: S1S2, regular rate and rhythm without overt murmur Abdomen: Soft, nondistended, nontender. Negative for masses or hepatosplenomegaly. Negative for costovertebral tenderness. Skin: Intact, warm, dry. No lesions or rashes noted. Hematologic: No petechiae or purpra. Mucosa appropriate color and normal nail bed color and refill. Extremities: Atraumatic, moves all extremities per self without difficulty or deficits, active tremors. Neurovascular unremarkable. Neuro: Awake, alert, oriented. Cranial nerves II through XII unremarkable. Cerebellum unremarkable. Motor and sensory unremarkable throughout. Exam nonfocal. Notes: Lab work and x-ray is pending. Dr Michael was involved in this case and will follow diagnostics and disposition patient appropriately. Diagnostics: CBC, CMP, COVID-19, chest x-ray Therapeutics: IV fluid, Toradol, dexamethasone Definitive disposition and diagnosis as appropriate pending reevaluation and review of above. 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." Musculoskeletal History: Reports: Fracture Endocrine/Metabolic History: Reports: Hypothyroidism - Infectious Disease History Infectious Disease History: Reports: Chicken Pox - Past Surgical History HEENT Surgical History: Reports: Other (See Below), Tonsillectomy Social & Family History - Family History Family Medical History: Noncontributory - Caffeine Use Caffeine Use: Reports: None, Soda Course - Vital Signs Last Recorded V/S: Last Vital Signs Temp 96.5 F L 11/23/19 21:15 Pulse 87 11/23/19 21:15 Resp 18 11/23/19 21:15 BP 137/71 11/23/19 21:15 Pulse Ox 97 11/23/19 21:15 - Orders/Labs/Meds Labs: Laboratory Tests 11/23/19 11/23/19 11/23/19 Range/Units 21:55 21:55 21:55 WBC 6.40 (4.0-11.0) K/uL RBC 4.23 L (4.30-5.90) M/uL Hgb 11.6 L (12.0-16.0) g/dL Hct 35.4 L (36.0-46.0) % MCV 83.7 (80.0-98.0) fL MCH 27.4 (27.0-32.0) pg MCHC 32.8 (31.0-37.0) g/dL RDW Std Deviation 46.3 (28.0-62.0) fl RDW Coeff of Willie 15 (11.0-15.0) % Plt Count 287 (150-400) K/uL MPV 10.40 (7.40-12.00) fL Add Manual Diff YES Neutrophils % (Manual) 46 L (48.0-80.0) % Lymphocytes % (Manual) 37 (16.0-40.0) % Monocytes % (Manual) 14 (0.0-15.0) % Eosinophils % (Manual) 3 (0.0-7.0) % Absolute Seg Neuts 2.9 (1.4-5.7) Lymphocytes # (Manual) 2.4 (0.6-2.4) Monocytes # (Manual) 0.9 H (0.0-0.8) Eosinophils # (Manual) 0.2 (0.0-0.7) Sodium 137 (136-145) mmol/L Potassium 4.0 (3.5-5.1) mmol/L Chloride 103 (98-107) mmol/L Carbon Dioxide 27.5 (21.0-32.0) mmol/L BUN 15 (7.0-18.0) mg/dL Creatinine 0.9 (0.6-1.0) mg/dL Est Cr Clr Drug Dosing 65.98 mL/min Estimated GFR (MDRD) > 60.0 ml/min Glucose 100 (74-106) mg/dL Calcium 8.3 L (8.5-10.1) mg/dL Total Bilirubin 0.2 (0.2-1.0) mg/dL AST 36 (15-37) IU/L ALT 41 (14-63) IU/L Alkaline Phosphatase 88 (46-116) U/L Total Protein 7.4 (6.4-8.2) g/dL Albumin 3.7 (3.4-5.0) g/dL Globulin 3.7 (2.6-4.0) g/dL Albumin/Globulin Ratio 1.0 (0.9-1.6) COVID-19 (ORION) NEGATIVE (NEGATIVE) Meds: Medications Discontinued Medications Generic Name Dose Route Start Last Admin Trade Name Freq PRN Reason Stop Dose Admin Dexamethasone 4 mg 11/23/19 21:19 11/23/19 21:58 Dexamethasone PO 11/23/19 21:20 4 mg ONETIME ONE Administration Sodium Chloride 1,000 mls @ 999 mls/hr 11/23/19 21:14 11/23/19 21:58 Normal Saline IV 11/23/19 22:14 999 mls/hr STAT ONE Administration Ketorolac Tromethamine 30 mg 11/23/19 21:14 11/23/19 21:59 Toradol IVPUSH 11/23/19 21:15 30 mg ONETIME ONE Administration
[2019-11-23 22:40] LABS: BLOOD UREA NITROGEN,BUN 15 mg/dL (7.0-18.0); CARBON DIOXIDE,CO2 27.5 mmol/L (21.0-32.0); CHLORIDE,CL 103 mmol/L (98-107); GLUCOSE RANDOM 100 mg/dL (74-106); SODIUM,NA 137 mmol/L (136-145)
--- NOTE | 2019-11-23 23:21 | CR ---
INDICATION: shortness of breath. History of sarcoidosis TECHNIQUE: Chest radiograph 2 views COMPARISON: 07/10/2019 FINDINGS: Mediastinum: The mediastinum is normal in appearance. The heart silhouette is normal in size and morphology. Lung: Both lungs are unremarkable in appearance. No sign of pleural effusion seen. No pneumothorax is identified. Bone and Soft tissue: Unremarkable for age. IMPRESSION: 1. No acute cardiopulmonary disease is seen. Dictated by: Shola Yin MD @ 11/23/2019 23:19:27 (Electronically Signed)
== END 2019-11-23 23:50 | disposition home or self-care (01) ==
LOC: MW.ED 20:49
DX: J40 Bronchitis, not specified as acute or chronic (principal); I10 Essential (primary) hypertension; E03.9 Hypothyroidism, unspecified; Z79.899 Other long term (current) drug therapy; Z20.828 Contact with and (suspected) exposure to other viral communicable diseases; Z91.048 Other nonmedicinal substance allergy status
CPT/HCPCS: 36415; 71046; 80053; 85025; 87635; 96374; 99284; J1885; J7030; J8540; U0002

== ENCOUNTER 2019-11-27 14:18 | Emergency (ER) | payer BC, OTHER ==
[2019-11-27] MEDS ORDERED: Sodium Chloride 0.9% 2.5 ML Syringe FLUSH PRN (15:03)
[2019-11-27] MEDS ORDERED: Sodium Chloride 0.9% 1,000 ML IV ONE (15:03)
[2019-11-27] MEDS ORDERED: Sodium Chloride 0.9% 10 ML Syringe FLUSH PRN (15:03)
[2019-11-27] MEDS ORDERED: Ketorolac 15 MG/ML SDV IVPUSH ONE (15:03)
--- NOTE | 2019-11-27 15:08 | EDM.PDOC ---
ED HPI GENERAL MEDICAL PROBLEM - General Chief Complaint: Respiratory Problem Stated Complaint: REFERRED BY DOCTOR Time Seen by Provider: 11/27/19 14:41 Source of Information: Reports: Patient - History of Present Illness INITIAL COMMENTS - FREE TEXT/NARRATIVE: History of present illness: 44-year-old female presenting with cough, fever, chills, sweats, sore throat and mild difficulty breathing for the last 5 days. She was seen here 4 days ago and had a chest x-ray and COVID swab which were negative. She was also seen at her primary care physician's office where they did a coronavirus test but told her they could not actually see her as a patient and sent her here. She has been taking Tylenol but feels that in between doses her fever returns and she feels miserable. She was also given albuterol nebulizer and inhaler by her primary care physician which she has been taking but has not helped that much. She has also been prescribed cough syrup with codeine and Tessalon Perles which also ayala ve not helped much. No chest pain. No abdominal pain or vomiting. Decreased appetite. Feels very fatigued. Review of systems: As per history of present illness and below otherwise all systems reviewed and negative. Past medical history: As per history of present illness and as reviewed below otherwise noncontributory. Sarcoidosis, hypertension Surgical history: As per history of present illness and as reviewed below otherwise noncontributory. Social history: No reported history of drug or alcohol abuse. Former smoker, quit years ago Family history: As per history of present illness and as reviewed below otherwise noncontributory. Physical exam: GEN: no acute distress, well appearing HEENT: Atraumatic, normocephalic, mucous membranes moist Neck: supple, nontender, trachea midline. Lungs: No respiratory distress. Oxygen saturation 98 to 100% on room air during my examination Heart: RRR Extremities: Atraumatic. Neurovascularly intact. Neuro: Awake, alert, oriented. Neuro Exam nonfocal. Skin: warm, dry, no lesions Diagnostics: Labs, chest x-ray Therapeutics: [] MDM: Impression: [] Plan: [] Definitive disposition and diagnosis as appropriate pending reevaluation and review of above. Chest Pain Score (Numeric/FACES): 4 - Related Data Allergies Allergy/AdvReac Type Severity Reaction Status Date / Time adhesive tape Allergy Blisters Verified 11/27/19 14:34 Home Meds: Home Meds Levothyroxine 20 mg PO DAILY 07/10/17 [History] Metoprolol Succinate [Toprol XL] 40 mg PO DAILY 07/10/17 [History] Levothyroxine [Synthroid] 50 mcg PO ACBREAKFAST 11/28/18 [History] Lisinopril 20 mg PO DAILY 11/28/18 [History] hydroCHLOROthiazide [Hydrochlorothiazide] 25 mg PO DAILY 11/28/18 [History] Albuterol [Ventolin HFA] 8 gm INH ASDIRECTED 07/08/19 [History] Benzonatate [Tessalon Perle] 100 mg PO BID #30 capsule 07/08/19 [Rx] metFORMIN [Glucophage] 500 mg PO DAILY 07/08/19 [History] Codeine Phosphate/Guaifenesin [Guaifen-Codeine 200-20 mg/10Ml] 10 ml PO QPM #100 liquid 07/10/19 [Rx] guaiFENesin [Mucinex] 600 mg PO BID #20 tab.er.12h 07/10/19 [Rx] Past Medical History Cardiovascular History: Reports: Hypertension Respiratory History: Reports: Other (See Below) Other Respiratory History: 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." Genitourinary History: Reports: UTI, Recurrent Musculoskeletal History: Reports: Fracture Psychiatric History: Reports: PTSD Endocrine/Metabolic History: Reports: Hypothyroidism - Infectious Disease History Infectious Disease History: Reports: None - Past Surgical History HEENT Surgical History: Reports: Other (See Below), Tonsillectomy GI Surgical History: Reports: Cholecystectomy Female Surgical History: Reports: Tubal Ligation Social & Family History - Family History Family Medical History: Noncontributory - Tobacco Use Smoking Status *Q: Never Smoker - Caffeine Use Caffeine Use: Reports: Soda - Recreational Drug Use Recreational Drug Use: No ED ROS GENERAL - Review of Systems Review Of Systems: See Below (See HPI) ED EXAM, GENERAL - Physical Exam Exam: See Below (see HPI) Course - Vital Signs Text/Narrative:: Cough, congestion, dyspnea, fevers and chills x 5 days. Suspect viral bronchitis versus coronavirus. Had a negative chest x-ray, unremarkable labs and negative coronavirus swab 4 days ago. Had repeat COVID swab today but results uncertain. Repeat labs and x-ray today are unremarkable. Discussed plan of care with patient, plan for alternating Tylenol and ibuprofen for symptom and fever control. O2 saturation 98% on reassessment. Stable for discharge Last Recorded V/S: Last Vital Signs Temp 97.0 F 11/27/19 14:38 Pulse 64 11/27/19 17:31 Resp 17 11/27/19 15:58 BP 104/52 L 11/27/19 17:31 Pulse Ox 97 11/27/19 17:31 - Orders/Labs/Meds Orders: Active Orders 24 hr Category Date Time Status Saline Lock Insert [OM.PC] Stat Oth 11/27/19 15:03 Ordered Labs: Laboratory Tests 11/27/19 11/27/19 11/27/19 Range/Units 15:15 15:15 15:15 WBC 4.58 (4.0-11.0) K/uL RBC 4.31 (4.30-5.90) M/uL Hgb 11.8 L (12.0-16.0) g/dL Hct 35.8 L (36.0-46.0) % MCV 83.1 (80.0-98.0) fL MCH 27.4 (27.0-32.0) pg MCHC 33.0 (31.0-37.0) g/dL RDW Std Deviation 47.1 (28.0-62.0) fl RDW Coeff of Willie 16 H (11.0-15.0) % Plt Count 258 (150-400) K/uL MPV 10.60 (7.40-12.00) fL Neut % (Auto) 28.1 L (48.0-80.0) % Lymph % (Auto) 40.0 (16.0-40.0) % Perkins % (Auto) 29.3 H (0.0-15.0) % Eos % (Auto) 2.2 (0.0-7.0) % Baso % (Auto) 0.4 (0.0-1.5) % Neut # (Auto) 1.3 L (1.4-5.7) K/uL Lymph # (Auto) 1.8 (0.6-2.4) K/uL Perkins # (Auto) 1.3 H (0.0-0.8) K/uL Eos # (Auto) 0.1 (0.0-0.7) K/uL Baso # (Auto) 0.0 (0.0-0.1) K/uL Sodium 137 (136-145) mmol/L Potassium 3.7 (3.5-5.1) mmol/L Chloride 100 (98-107) mmol/L Carbon Dioxide 26.7 (21.0-32.0) mmol/L BUN 8 (7.0-18.0) mg/dL Creatinine 0.7 (0.6-1.0) mg/dL Est Cr Clr Drug Dosing 84.84 mL/min Estimated GFR (MDRD) > 60.0 ml/min Glucose 87 (74-106) mg/dL Calcium 8.3 L (8.5-10.1) mg/dL Total Bilirubin 0.3 (0.2-1.0) mg/dL AST 40 H (15-37) IU/L ALT 47 (14-63) IU/L Alkaline Phosphatase 71 (46-116) U/L Total Protein 7.4 (6.4-8.2) g/dL Albumin 3.8 (3.4-5.0) g/dL Globulin 3.6 (2.6-4.0) g/dL Albumin/Globulin Ratio 1.1 (0.9-1.6) HCG, Qual NEGATIVE (NEG) Meds: Medications Discontinued Medications Generic Name Dose Route Start Last Admin Trade Name Freq PRN Reason Stop Dose Admin Sodium Chloride 1,000 mls @ 999 mls/hr 11/27/19 15:03 11/27/19 15:24 Normal Saline IV 11/27/19 16:03 999 mls/hr .Bolus ONE Administration Ketorolac Tromethamine 30 mg 11/27/19 15:03 11/27/19 15:24 Toradol IVPUSH 11/27/19 15:04 30 mg ONETIME ONE Administration Sodium Chloride 10 ml 11/27/19 15:03 11/27/19 15:25 Saline Flush FLUSH 10 ml ASDIRECTED PRN Administration Keep Vein Open Sodium Chloride 2.5 ml 11/27/19 15:03 11/27/19 15:25 Saline Flush FLUSH 2.5 ml ASDIRECTED PRN Administration Keep Vein Open - Re-Assessments/Exams Free Text/Narrative Re-Assessment/Exam: 11/27/19 16:46 Patient feeling better. Stable for discharge. Departure - Departure Time of Disposition: 16:48 Disposition: Home, Self-Care 01 Clinical Impression: Bronchitis - Discharge Information Instructions: COVID-19 Frequently Asked Questions, Shortness of Breath, Adult, [id number], COVID-19, Acute Bronchitis, Adult, [id number], Upper Respiratory Infection, Adult, [id number], COVID-19: How to Protect Yourself and Others - CDC, Infection Prevention in the Home, Coronavirus Information 06/30/19, Prevent the Spread of COVID-19 if You Are Sick - [facility] Referrals: Liya Lopes MD [Primary Care Provider] - 1 Day Forms: ED Department Discharge, ED Return to Work/School Form Additional Instructions: You likely have a viral bronchitis, this may possibly be due to coronavirus although your swab was negative on your prior ER visit. You did have a repeat swab done today at the clinic which is pending for which we do not know the results. Please self isolate for at least 10 days or until your symptoms have completely resolved. Please get plenty of rest. Drink lots of fluids. Alternate Tylenol and ibuprofen for fever control. You may take ibuprofen 600 mg every 8 hours and in between there, i.e. at the 4-hour grant, you can take 2 extra strength (500 mg x 2 = 1000 mg) Tylenol, do not take more than 6 extra strength Tylenol in a 24-hour period. If you notice that your breathing is increasingly severe and you cannot breathe or air in severe distress, please return to the emergency department. The following information is given to patients seen in the emergency department who are being discharged to home. This information is to outline your options for follow-up care. We provide all patients seen in our emergency department with a follow-up referral. The need for follow-up, as well as the timing and circumstances, are variable depending upon the specifics of your emergency department visit. If you don't have a primary care physician on staff, we will provide you with a referral. We always advise you to contact your personal physician following an emergency department visit to inform them of the circumstance of the visit and for follow-up with them and/or the need for any referrals to a consulting specialist. The emergency department will also refer you to a specialist when appropriate. This referral assures that you have the opportunity for follow-up care with a specialist. All of these measure are taken in an effort to provide you with optimal care, which includes your follow-up. Under all circumstances we always encourage you to contact your private physician who remains a resource for coordinating your care. When calling for follow-up care, please make the office aware that this follow-up is from your recent emergency room visit. If for any reason you are refused follow-up, please contact the [facility] Emergency Department at and asked to speak to the emergency department charge nurse. Sepsis Event Note (ED) - Evaluation Sepsis Screening Result: No Definite Risk - My Orders Last 24 Hours: My Active Orders 11/27/19 15:03 Saline Lock Insert [OM.PC] Stat - Assessment/Plan Last 24 Hours: My Active Orders 11/27/19 15:03 Saline Lock Insert [OM.PC] Stat
--- NOTE | 2019-11-27 15:47 | CR ---
Chest: Portable view of the chest was obtained. Comparison: Prior chest x-ray of 11/23/19. Heart size and mediastinum are within normal limits for portable technique. Lungs are clear with no acute parenchymal change. Bony structures are grossly intact. Impression: 1. Nothing acute is seen on portable chest x-ray. Diagnostic code #1 Study was dictated in MDT
[2019-11-27 16:21] LABS: BLOOD UREA NITROGEN,BUN 8 mg/dL (7.0-18.0); CARBON DIOXIDE,CO2 26.7 mmol/L (21.0-32.0); CHLORIDE,CL 100 mmol/L (98-107); GLUCOSE RANDOM 87 mg/dL (74-106); POTASSIUM,K 3.7 mmol/L (3.5-5.1); SODIUM,NA 137 mmol/L (136-145)
== END 2019-11-27 17:31 | disposition home or self-care (01) ==
LOC: MW.ED 14:18
DX: J40 Bronchitis, not specified as acute or chronic (principal); I10 Essential (primary) hypertension; E03.9 Hypothyroidism, unspecified; Z91.048 Other nonmedicinal substance allergy status; Z79.899 Other long term (current) drug therapy; Z87.891 Personal history of nicotine dependence; Z90.89 Acquired absence of other organs
CPT/HCPCS: 71045; 80053; 84703; 85025; 96374; 99283; J1885; J7030

== ENCOUNTER 2019-12-04 16:30 | Emergency (ER) | payer BC, OTHER ==
--- NOTE | 2019-12-04 16:56 | EDM.PDOC ---
ED HPI GENERAL MEDICAL PROBLEM - General Chief Complaint: Respiratory Problem Stated Complaint: COVID Time Seen by Provider: 12/04/19 16:38 - History of Present Illness INITIAL COMMENTS - FREE TEXT/NARRATIVE: History of present illness: Patient presents with continued cough after being diagnosed with COVID positive. She denies any difficulty breathing no fever no chills there is been no diarrhea or vomiting her primary care doctor sent her to the ED because of continued coughing. Vital signs are stable in the emergency department there is no respiratory distress. Review of systems: As per history of present illness and below otherwise all systems reviewed and negative. Past medical history: As per history of present illness and as reviewed below otherwise noncontributory. Surgical history: As per history of present illness and as reviewed below otherwise noncontributory. Social history: No reported history of drug or alcohol abuse. Family history: As per history of present illness and as reviewed below otherwise noncontributory. Physical exam: HEENT: Atraumatic, normocephalic, pupils reactive, negative for conjunctival pallor or scleral icterus, mucous membranes moist, throat clear, neck supple, no ntender, trachea midline. Lungs: Clear to auscultation, breath sounds equal bilaterally, chest nontender. Heart: S1S2, regular, negative for clicks, rubs, or JVD. Abdomen: Soft, nondistended, nontender. Negative for masses or hepatosplenomegaly. Negative for costovertebral tenderness. Pelvis: Stable nontender. Genitourinary: Deferred. Rectal: Deferred. Extremities: Atraumatic, negative for cords or calf pain. Neurovascular unremarkable. Neuro: Awake, alert, oriented. Cranial nerves II through XII unremarkable. Cerebellum unremarkable. Motor and sensory unremarkable throughout. Exam nonfocal. Diagnostics: [] Therapeutics: [] Impression: Viral respiratory infection [] Plan: X-ray chest vital signs are stable she will be discharged home and encouraged to self isolate and not expose other people to her COVID infection. [] Definitive disposition and diagnosis as appropriate pending reevaluation and review of above. Chest Pain Score (Numeric/FACES): 4 - Related Data Allergies Allergy/AdvReac Type Severity Reaction Status Date / Time adhesive tape Allergy Blisters Verified 12/04/19 16:43 Home Meds: Home Meds Levothyroxine 20 mg PO DAILY 03/27/18 [History] Metoprolol Succinate [Toprol XL] 40 mg PO DAILY 07/10/17 [History] Levothyroxine [Synthroid] 50 mcg PO ACBREAKFAST 11/28/18 [History] Lisinopril 20 mg PO DAILY 11/28/18 [History] hydroCHLOROthiazide [Hydrochlorothiazide] 25 mg PO DAILY 11/28/18 [History] Albuterol [Ventolin HFA] 8 gm INH ASDIRECTED 07/08/19 [History] Benzonatate [Tessalon Perle] 100 mg PO BID #30 capsule 07/08/19 [Rx] metFORMIN [Glucophage] 500 mg PO DAILY 07/08/19 [History] Codeine Phosphate/Guaifenesin [Guaifen-Codeine 200-20 mg/10Ml] 10 ml PO QPM #100 liquid 07/10/19 [Rx] guaiFENesin [Mucinex] 600 mg PO BID #20 tab.er.12h 07/10/19 [Rx] Benzonatate [Tessalon Perle] 100 mg PO Q8HR #30 capsule 12/04/19 [Rx] Prazosin HCl [Prazosin] 2 mg PO DAILY 12/04/19 [History] Past Medical History Cardiovascular History: Reports: Hypertension Respiratory History: Reports: Other (See Below) Other Respiratory History: 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." Genitourinary History: Reports: UTI, Recurrent Musculoskeletal History: Reports: Fracture Psychiatric History: Reports: PTSD Endocrine/Metabolic History: Reports: Hypothyroidism - Infectious Disease History Infectious Disease History: Reports: None - Past Surgical History HEENT Surgical History: Reports: Other (See Below), Tonsillectomy GI Surgical History: Reports: Cholecystectomy Female Surgical History: Reports: Tubal Ligation Social & Family History - Family History Family Medical History: Noncontributory - Caffeine Use Caffeine Use: Reports: Soda ED ROS GENERAL - Review of Systems Review Of Systems: See Below ED EXAM, GENERAL - Physical Exam Exam: See Below Course - Vital Signs Text/Narrative:: Patient's vital signs are stable oxygen saturation on room air is 97% no evidence of respiratory distress. A one-view portable chest read interpreted by me no acute cardiopulmonary pathology is evident. Patient is encouraged to use Motrin Tylenol for discomfort or fever and to use hot tea and honey to soothe coughs and throat soreness to take Tessalon Perles as recommended. She is to self isolate home for 14 days only return to the [facility] department for respiratory distress. Last Recorded V/S: Last Vital Signs Temp 35.9 C L 12/04/19 16:43 Pulse 87 12/04/19 16:43 Resp 17 12/04/19 16:43 BP 112/63 12/04/19 16:43 Pulse Ox 97 12/04/19 16:43 - Orders/Labs/Meds Orders: Active Orders 24 hr Category Date Time Status Chest 1V Frontal [CR] Stat Exams 12/04/19 16:41 Ordered Departure - Departure Time of Disposition: 17:37 Disposition: Home, Self-Care 01 Condition: Good Clinical Impression: COVID-19, Respiratory tract infection - Discharge Information *PRESCRIPTION DRUG MONITORING PROGRAM REVIEWED*: Not Applicable *COPY OF PRESCRIPTION DRUG MONITORING REPORT IN PATIENT SHANT: Not Applicable Prescriptions: Benzonatate [Tessalon Perle] 100 mg PO Q8HR #30 capsule Instructions: COVID-19 Frequently Asked Questions, Upper Respiratory Infection, Adult, [id number] Forms: ED Department Discharge Additional Instructions: The following information is given to patients seen in the emergency department who are being discharged to home. This information is to outline your options for follow-up care. We provide all patients seen in our emergency department with a follow-up referral. The need for follow-up, as well as the timing and circumstances, are variable depending upon the specifics of your emergency department visit. If you don't have a primary care physician on staff, we will provide you with a referral. We always advise you to contact your personal physician following an emergency department visit to inform them of the circumstance of the visit and for follow-up with them and/or the need for any referrals to a consulting specialist. The emergency department will also refer you to a specialist when appropriate. This referral assures that you have the opportunity for follow-up care with a specialist. All of these measure are taken in an effort to provide you with optimal care, which includes your follow-up. Under all circumstances we always encourage you to contact your private physician who remains a resource for coordinating your care. When calling for follow-up care, please make the office aware that this follow-up is from your recent emergency room visit. If for any reason you are refused follow-up, please contact the [facility] Emergency Department at and asked to speak to the emergency department charge nurse. Sepsis Event Note (ED) - Focused Exam Vital Signs: Vital Signs Temp Pulse Resp BP Pulse Ox 12/04/19 16:43 35.9 C L 87 17 112/63 97 - My Orders Last 24 Hours: My Active Orders 12/04/19 16:41 Chest 1V Frontal [CR] Stat - Assessment/Plan Last 24 Hours: My Active Orders 12/04/19 16:41 Chest 1V Frontal [CR] Stat
--- NOTE | 2019-12-04 17:41 | CR ---
Chest: Portable view of the chest was obtained. Comparison: Prior chest x-ray of 11/27/19. Heart size and mediastinum are normal. Lungs show no acute parenchymal change. Bony structures are grossly intact. Impression: 1. Nothing acute is appreciated on portable chest x-ray. Diagnostic code #1 This report was dictated in MDT
== END 2019-12-04 17:51 | disposition home or self-care (01) ==
LOC: MW.ED 16:30
DX: U07.1 COVID-19 (principal); R06.9 Unspecified abnormalities of breathing; E03.9 Hypothyroidism, unspecified; I10 Essential (primary) hypertension; Z79.899 Other long term (current) drug therapy
CPT/HCPCS: 71045; 71045-26; 99282; 99283-25

== ENCOUNTER 2020-08-18 20:01 | Emergency (ER) | payer BC ==
--- NOTE | 2020-08-18 20:12 | EDM.PDOC ---
<Jake Sanchez - Last Filed: 08/19/20 02:56> ED HPI GENERAL MEDICAL PROBLEM - General Chief Complaint: Gastrointestinal Problem Stated Complaint: DIARREA Time Seen by Provider: 08/18/20 20:11 - History of Present Illness INITIAL COMMENTS - FREE TEXT/NARRATIVE: Patient was signed out to me by Raven Quijano at 7PM I did reevaluate the patient and patient appeared well. At this time the patient was pending CT results. Labs reviewed CBC was unremarkable. CMP was unremarkable. Urinalysis was negative. The radiological images were viewed by myself along with reading the report from the radiologist. CT abdomen pelvis with contrast does not reveal any acute intra-abdominal process. There is a 3 cm heterogeneously enhancing lesion in the right anterior uterine body likely representing a fibroid. After imaging I did discuss results with the patient. In prior discussion with nurse practitioner they have discussed the use of belladonna and opium for pain relief as she is having rectal pain with her diarrhea. I did discuss the importance of adequate hydration. I discussed that the results of the stool studies are pending and she will be contacted if they turn positive. I discussed that typically this does improve with time and we do not recommend antibiotics. I discussed if she had any new or worsening symptoms or feels dehydrated or is unable to tolerate p.o. that she should return to the emergency department. She was amenable to discharge at this time and had no further questions. DISPOSITION: The patient was discharged home in stable condition. The patient will follow up with primary care physician within 2 to 3 days CONDITION: Fair PROCEDURES: None FINAL IMPRESSION(S)/DIAGNOSES: 1. Acute diarrhea likely secondary to gastroenteritis. Jake Sanchez M.D. - Related Data Allergies Allergy/AdvReac Type Severity Reaction Status Date / Time adhesive tape Allergy Blisters Verified 08/18/20 20:10 Home Meds: Home Meds Levothyroxine 20 mg PO DAILY 07/10/17 [History] Metoprolol Succinate [Toprol XL] 40 mg PO DAILY 07/10/17 [History] Levothyroxine [Synthroid] 50 mcg PO ACBREAKFAST 11/28/18 [History] Lisinopril 20 mg PO DAILY 11/28/18 [History] hydroCHLOROthiazide [Hydrochlorothiazide] 25 mg PO DAILY 11/28/18 [History] Albuterol [Ventolin HFA] 8 gm INH ASDIRECTED 07/08/19 [History] Benzonatate [Tessalon Perle] 100 mg PO BID #30 capsule 07/08/19 [Rx] metFORMIN [Glucophage] 500 mg PO DAILY 07/08/19 [History] Codeine Phosphate/Guaifenesin [Guaifen-Codeine 200-20 mg/10Ml] 10 ml PO QPM #100 liquid 07/10/19 [Rx] guaiFENesin [Mucinex] 600 mg PO BID #20 tab.er.12h 07/10/19 [Rx] Benzonatate [Tessalon Perle] 100 mg PO Q8HR #30 capsule 12/04/19 [Rx] Prazosin HCl [Prazosin] 2 mg PO DAILY 12/04/19 [History] Opium/Belladonna Alkaloids [Belladonna-Opium 16.2-30 Supp] 1 each RC BID #4 supp.rect 08/18/20 [Rx] Sertraline [Zoloft] 25 mg PO DAILY 08/18/20 [History] Departure - Departure Time of Disposition: 22:59 Disposition: Home, Self-Care 01 Condition: Fair Clinical Impression: Diarrhea, Abdominal pain - Discharge Information *PRESCRIPTION DRUG MONITORING PROGRAM REVIEWED*: No *COPY OF PRESCRIPTION DRUG MONITORING REPORT IN PATIENT SHANT: No Prescriptions: Opium/Belladonna Alkaloids [Belladonna-Opium 16.2-30 Supp] 1 each RC BID #4 supp.rect Instructions: Food Choices to Help Relieve Diarrhea, Adult, Dehydration, Adult, [id number], Abdominal Pain, Adult, [id number], Diarrhea, Adult, Ukww-[id number] Referrals: PCP,None [Primary Care Provider] - Forms: ED Department Discharge Additional Instructions: You were evaluated today on an emergent basis. At this time your laboratory work-up is normal. The stool studies that we did send are send out labs and they take a couple of days to result. At this time given that your labs look normal and there is no abnormality on your CT I do recommend that you continue with fluid hydration either with Gatorade or Pedialyte and to continue with a bland diet. If you have any worsening of your symptoms, inability to eat or drink I would like you to return to the emergency department. Please follow-up with your primary care physician and follow-up on their stool studies also. [facility] [address] [place] [address] [facility] [address] [place] [address] The patient is informed of any results of their evaluation and diagnostic workup and all questions are answered. They are given discharge instructions and return precautions. The patient is stable for discharge. The patient states they understand and agree with the plan and that they will return if their symptoms get worse or if they have any new concerns. The following information is given to patients seen in the emergency department who are being discharged to home. This information is to outline your options for follow-up care. We provide all patients seen in our emergency department with a follow-up referral. The need for follow-up, as well as the timing and circumstances, are variable depending upon the specifics of your emergency department visit. If you don't have a primary care physician on staff, we will provide you with a referral. We always advise you to contact your personal physician following an emergency department visit to inform them of the circumstance of the visit and for follow-up with them and/or the need for any referrals to a consulting specialist. The emergency department will also refer you to a specialist when appropriate. This referral assures that you have the opportunity for follow-up care with a specialist. All of these measure are taken in an effort to provide you with optimal care, which includes your follow-up. Under all circumstances we always encourage you to contact your private physician who remains a resource for coordinating your care. When calling for follow-up care, please make the office aware that this follow-up is from your recent emergency room visit. If for any reason you are refused follow-up, please contact the [facility] Emergency Department at and asked to speak to the emergency department charge nurse. <Ragini Quijano E - Last Filed: 08/19/20 09:51> ED HPI GENERAL MEDICAL PROBLEM - General Source of Information: Reports: Patient History Limitations: Reports: No Limitations - History of Present Illness INITIAL COMMENTS - FREE TEXT/NARRATIVE: HISTORY AND PHYSICAL: History of present illness: Patient is a 45-year-old female who presents to the emergency room with complaints of generalized abdominal pain and diarrhea since Sunday. She states initially the diarrhea was significant and started to ease up on Sunday. Slowly the diarrhea has returned and she feels she is going hourly. She was able to drop off a stool sample at the clinic today although has not received any results. Patient denies any fever, chills, headache, change in vision, syncope or near syncope. Denies any chest pain, back pain, shortness of breath or cough. Denies any nausea, vomiting, constipation or dysuria. Has not noted any blood in urine or stool. Patient has been eating and drinking appropriately. No recent travel, sick contacts or antibiotic use. Review of systems: As per history of present illness and below otherwise all systems reviewed and negative. Past medical history: As per history of present illness and as reviewed below otherwise noncontributory. Surgical history: As per history of present illness and as reviewed below otherwise noncontributory. Social history: See social history for further information Family history: As per history of present illness and as reviewed below otherwise noncontributory. Physical exam: General: Well developed and well nourished 45-year-old female. Alert and orientated x 3. Nontoxic in appearance and in no acute distress. Vital signs are stable and have been reviewed by me. Nursing notes were reviewed. HEENT: Atraumatic, normocephalic, pupils equal and reactive bilaterally, negative for conjunctival pallor or scleral icterus, mucous membranes moist, trachea midline. No drooling or trismus noted. No meningeal signs. No hot potato voice noted. Lungs: Clear to auscultation bilaterally. No wheezes, rales, or rhonchi. Chest nontender. Normal work of breathing, no accessory muscles used. Heart: S1S2, regular rate and rhythm without overt murmur, gallops, or rubs. No JVD. No peripheral edema Abdomen: Soft, nondistended, generalized lower abdominal pain bilaterally. No rebound tenderness. Normoactive bowel sounds. Negative for masses or costovertebral tenderness. Skin: Intact, warm, dry. No lesions or rashes noted. Hematologic: No petechiae or purpra. Mucosa appropriate color and normal nail bed color and refill. Extremities: Atraumatic, moves all extremities per self without difficulty or deficits, negative for cords or calf pain. Neurovascular unremarkable. Neuro: Awake, alert, oriented. Cranial nerves II through XII unremarkable. Cerebellum unremarkable. Motor and sensory unremarkable throughout. Exam nonfocal. Psychiatric: Mood and affect are appropriate. Normal thought process. Answering questions appropriately. Notes: *This patient was seen and evaluated during the 2019 SARS-CoV-2 novel coronavirus pandemic period. Community viral transmission is ongoing at time of this encounter and the emergency department is operating under pandemic response procedures. Patient is having generalized abdominal pain with frequent diarrhea. We will do some basic labs, stool studies and a CT of the abdomen and pelvis that she does have some pain associated with this as well. She is agreeable to IV fluids at this time. If you diagnostics are pending. VSS. Dr Sanchez will follow these results and disposition patient appropriately. Diagnostics: CBC, CMP, UA, urine , stool studies, CT abdomen and pelvis Therapeutics: IV fluid Impression: Diarrhea Definitive disposition and diagnosis as appropriate pending reevaluation and review of above. 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." Genitourinary History: Reports: UTI, Recurrent Musculoskeletal History: Reports: Fracture Psychiatric History: Reports: PTSD Endocrine/Metabolic History: Reports: Hypothyroidism - Infectious Disease History Infectious Disease History: Reports: None - Past Surgical History HEENT Surgical History: Reports: Other (See Below), Tonsillectomy GI Surgical History: Reports: Cholecystectomy Female Surgical History: Reports: Tubal Ligation Social & Family History - Family History Family Medical History: No Pertinent Family History - Caffeine Use Caffeine Use: Reports: Soda ED ROS GENERAL - Review of Systems Review Of Systems: Comprehensive ROS is negative, except as noted in HPI. ED EXAM, GI/ABD - Physical Exam Exam: See Below (See dictation) Course - Vital Signs Last Recorded V/S: Last Vital Signs Temp 97.6 F 08/18/20 20:11 Pulse 70 08/18/20 23:19 Resp 16 08/18/20 23:19 BP 110/72 08/18/20 23:19 Pulse Ox 98 08/18/20 23:19 - Orders/Labs/Meds Orders: Active Orders 24 hr Category Date Time Status CAMPYLOBACTER CULT [MREF] Stat Lab 08/18/20 20:40 Received OVA & PARASITES BY IMMUNOASSAY [MREF] Stat Lab 08/18/20 20:40 Received STOOL CULTURE/SHIGA TOXIN [MREF] Stat Lab 08/18/20 20:40 Received Labs: Laboratory Tests 08/18/20 08/18/20 08/18/20 Range/Units 20:29 20:29 20:40 WBC 4.85 (4.0-11.0) K/uL RBC 4.64 (4.30-5.90) M/uL Hgb 12.4 (12.0-16.0) g/dL Hct 38.2 (36.0-46.0) % MCV 82.3 (80.0-98.0) fL MCH 26.7 L (27.0-32.0) pg MCHC 32.5 (31.0-37.0) g/dL RDW Std Deviation 44.4 (28.0-62.0) fl RDW Coeff of Willie 15 (11.0-15.0) % Plt Count 347 (150-400) K/uL MPV 10.40 (7.40-12.00) fL Add Manual Diff YES Neutrophils % (Manual) 6 L (48.0-80.0) % Band Neutrophils % 19 % Lymphocytes % (Manual) 40 (16.0-40.0) % Monocytes % (Manual) 25 H (0.0-15.0) % Eosinophils % (Manual) 8 H (0.0-7.0) % Basophils % (Manual) 2 H (0.0-1.5) % Nucleated RBC % 0.0 /100WBC Absolute Seg Neuts 0.3 L (1.4-5.7) Band Neutrophils # 0.9 Lymphocytes # (Manual) 1.9 (0.6-2.4) Monocytes # (Manual) 1.2 H (0.0-0.8) Eosinophils # (Manual) 0.4 (0.0-0.7) Basophils # (Manual) 0.1 (0.0-0.1) Nucleated RBCs # 0 K/uL Sodium 136 (136-145) mmol/L Potassium 3.6 (3.5-5.1) mmol/L Chloride 100 (98-107) mmol/L Carbon Dioxide 25.1 (21.0-32.0) mmol/L BUN 13 (7.0-18.0) mg/dL Creatinine 0.9 (0.6-1.0) mg/dL Est Cr Clr Drug Dosing 65.30 mL/min Estimated GFR (MDRD) > 60.0 ml/min Glucose 95 (74-106) mg/dL Calcium 8.7 (8.5-10.1) mg/dL Total Bilirubin 0.5 (0.2-1.0) mg/dL AST 27 (15-37) IU/L ALT 34 (14-63) IU/L Alkaline Phosphatase 87 (46-116) U/L Total Protein 8.0 (6.4-8.2) g/dL Albumin 4.0 (3.4-5.0) g/dL Globulin 4.0 (2.6-4.0) g/dL Albumin/Globulin Ratio 1.0 (0.9-1.6) Urine Color YELLOW Urine Appearance CLEAR Urine pH 5.0 (5.0-8.0) Ur Specific [place] >= 1.030 (1.001-1.035) Urine Protein NEGATIVE (NEGATIVE) mg/dL Urine Glucose (UA) NEGATIVE (NEGATIVE) mg/dL Urine Ketones NEGATIVE (NEGATIVE) mg/dL Urine Occult Blood NEGATIVE (NEGATIVE) Urine Nitrite NEGATIVE (NEGATIVE) Urine Bilirubin NEGATIVE (NEGATIVE) Urine Urobilinogen 0.2 (<2.0) EU/dL Ur Leukocyte Esterase NEGATIVE (NEGATIVE) Urine HCG, Qual (NEGATIVE) 08/18/20 Range/Units 20:40 WBC (4.0-11.0) K/uL RBC (4.30-5.90) M/uL Hgb (12.0-16.0) g/dL Hct (36.0-46.0) % MCV (80.0-98.0) fL MCH (27.0-32.0) pg MCHC (31.0-37.0) g/dL RDW Std Deviation (28.0-62.0) fl RDW Coeff of Willie (11.0-15.0) % Plt Count (150-400) K/uL MPV (7.40-12.00) fL Add Manual Diff Neutrophils % (Manual) (48.0-80.0) % Band Neutrophils % % Lymphocytes % (Manual) (16.0-40.0) % Monocytes % (Manual) (0.0-15.0) % Eosinophils % (Manual) (0.0-7.0) % Basophils % (Manual) (0.0-1.5) % Nucleated RBC % /100WBC Absolute Seg Neuts (1.4-5.7) Band Neutrophils # Lymphocytes # (Manual) (0.6-2.4) Monocytes # (Manual) (0.0-0.8) Eosinophils # (Manual) (0.0-0.7) Basophils # (Manual) (0.0-0.1) Nucleated RBCs # K/uL Sodium (136-145) mmol/L Potassium (3.5-5.1) mmol/L Chloride (98-107) mmol/L Carbon Dioxide (21.0-32.0) mmol/L BUN (7.0-18.0) mg/dL Creatinine (0.6-1.0) mg/dL Est Cr Clr Drug Dosing mL/min Estimated GFR (MDRD) ml/min Glucose (74-106) mg/dL Calcium (8.5-10.1) mg/dL Total Bilirubin (0.2-1.0) mg/dL AST (15-37) IU/L ALT (14-63) IU/L Alkaline Phosphatase (46-116) U/L Total Protein (6.4-8.2) g/dL Albumin (3.4-5.0) g/dL Globulin (2.6-4.0) g/dL Albumin/Globulin Ratio (0.9-1.6) Urine Color Urine Appearance Urine pH (5.0-8.0) Ur Specific [place] (1.001-1.035) Urine Protein (NEGATIVE) mg/dL Urine Glucose (UA) (NEGATIVE) mg/dL Urine Ketones (NEGATIVE) mg/dL Urine Occult Blood (NEGATIVE) Urine Nitrite (NEGATIVE) Urine Bilirubin (NEGATIVE) Urine Urobilinogen (<2.0) EU/dL Ur Leukocyte Esterase (NEGATIVE) Urine HCG, Qual NEGATIVE (NEGATIVE) Meds: Medications Discontinued Medications Generic Name Dose Route Start Last Admin Trade Name Freq PRN Reason Stop Dose Admin Belladonna Alkaloids/Opium 1 supp 08/18/20 23:07 08/18/20 23:21 Belladonna Alkaloids/Opium 16.2-30 Mg Supp RECTAL 08/18/20 23:08 1 supp ONETIME ONE Administration Sodium Chloride 1,000 mls @ 999 mls/hr 08/18/20 20:13 08/18/20 20:17 Normal Saline IV 08/18/20 21:13 999 mls/hr STAT ONE Administration Iopamidol 100 ml 08/18/20 21:39 08/18/20 21:40 Iopamidol 755 Mg/Ml 500 Ml Multipack Bottle IVPUSH 08/18/20 21:40 100 ml ONETIME STA Administration Sepsis Event Note (ED) - Focused Exam Vital Signs: Vital Signs Pulse Resp BP Pulse Ox 08/18/20 23:19 70 16 110/72 98 08/18/20 22:21 80 16 130/64 99 - My Orders Last 24 Hours: My Active Orders 08/18/20 20:40 CAMPYLOBACTER CULT [MREF] Stat OVA & PARASITES BY IMMUNOASSAY [MREF] Stat STOOL CULTURE/SHIGA TOXIN [MREF] Stat - Assessment/Plan Last 24 Hours: My Active Orders 08/18/20 20:40 CAMPYLOBACTER CULT [MREF] Stat OVA & PARASITES BY IMMUNOASSAY [MREF] Stat STOOL CULTURE/SHIGA TOXIN [MREF] Stat
[2020-08-18] MEDS ORDERED: Sodium Chloride 0.9% 1,000 ML IV ONE (20:13)
[2020-08-18 20:53] LABS: BLOOD UREA NITROGEN,BUN 13 mg/dL (7.0-18.0); CARBON DIOXIDE,CO2 25.1 mmol/L (21.0-32.0); CHLORIDE,CL 100 mmol/L (98-107); GLUCOSE RANDOM 95 mg/dL (74-106); POTASSIUM,K 3.6 mmol/L (3.5-5.1); SODIUM,NA 136 mmol/L (136-145)
[2020-08-18] MEDS ORDERED: Iopamidol 755 MG/ML 500 ML Multipack Bottle IVPUSH STA (21:39)
--- NOTE | 2020-08-18 22:53 | CT ---
Indication: Abdominal pain Technique: Contrast enhanced axial CT imaging through the abdomen and pelvis. 100 mL Isovue 370 contrast agent was administered intravenously. Sagittal and coronal reconstructions are provided. Comparison: None Findings: No abnormalities are demonstrated relating to the liver, spleen, pancreas, adrenal glands, and kidneys. Cholecystectomy clips are noted. The portal vein is patent. The abdominal aorta is normal in caliber. There is no abdominal lymphadenopathy. The stomach and duodenum are unremarkable. There is no small bowel wall thickening or abnormal distention. The appendix is noninflamed. There is no colonic wall thickening, mesenteric edema, or intraperitoneal free fluid. A 3 cm heterogeneously enhancing lesion in the right anterior uterine body likely represents an intramural fibroid. The ovaries are unremarkable. There is no pelvic free fluid or lymphadenopathy. The osseous structures are unremarkable. The included lung bases are clear. Impression: 1. No acute abnormality demonstrated in the abdomen and pelvis. 2. Likely 3 cm uterine fibroid. This can be confirmed with ultrasound. Please note that all CT scans at this facility use dose modulation, iterative reconstruction, and/or weight-based dosing when appropriate to reduce radiation dose to as low as reasonably achievable. Dictated by Kayce Downey MD @ 08/18/2020 10:51:[address] Kayce Downey @ Aug 18 2020 10:51PM
[2020-08-18] MEDS ORDERED: Belladonna Alkaloids/Opium 16.2-30 MG Supp RECTAL ONE (23:07)
== END 2020-08-18 23:23 | disposition home or self-care (01) ==
LOC: MW.ED 20:01
DX: R10.84 Generalized abdominal pain (principal); R19.7 Diarrhea, unspecified; I10 Essential (primary) hypertension; E03.9 Hypothyroidism, unspecified; Z91.048 Other nonmedicinal substance allergy status; Z79.899 Other long term (current) drug therapy; Z79.84 Long term (current) use of oral hypoglycemic drugs
CPT/HCPCS: 36415; 74177; 80053; 81003; 81025; 85025; 87045; 87046; 87328; 87329; 87449; 87899; 99284; A9270; J7030; Q9967; 99283

== ENCOUNTER 2022-01-22 12:00 | Emergency (ER) | payer BC ==
[2022-01-22] MEDS ORDERED: Ketorolac 30 MG/ML SDV IM ONE (12:01)
== END 2022-01-22 15:15 | disposition home or self-care (01) ==
LOC: MW.ED 12:00
DX: R53.83 Other fatigue (principal); R53.81 Other malaise; I10 Essential (primary) hypertension; F17.200 Nicotine dependence, unspecified, uncomplicated; Z98.890 Other specified postprocedural states
CPT/HCPCS: 96372; 99283; J1885

== ENCOUNTER 2022-02-26 11:52 | Emergency (ER) | payer BC ==
[2022-02-26 12:50] LABS: CARBON DIOXIDE,CO2 29.8 mmol/L (21.0-32.0); POTASSIUM,K 4.2 mmol/L (3.5-5.1)
== END 2022-02-26 14:12 | disposition home or self-care (01) ==
LOC: MW.ED 11:52
DX: R55 Syncope and collapse (principal); I10 Essential (primary) hypertension; E03.9 Hypothyroidism, unspecified; Z79.899 Other long term (current) drug therapy; Z91.048 Other nonmedicinal substance allergy status
CPT/HCPCS: 36415; 80053; 81003; 84443; 84484; 85025; 93005; 99284

== ENCOUNTER 2022-04-15 09:54 | Emergency (ER) | payer BC ==
[2022-04-15 11:49] LABS: CORONAVIRUS COVID-19 NAA NEGATIVE (NEGATIVE); INFLUENZA A NAA NEGATIVE (NEGATIVE); INFLUENZA B NAA NEGATIVE (NEGATIVE)
== END 2022-04-15 12:12 | disposition home or self-care (01) ==
LOC: MW.ED 09:54
DX: J06.9 Acute upper respiratory infection, unspecified (principal); I10 Essential (primary) hypertension; E03.9 Hypothyroidism, unspecified; F17.210 Nicotine dependence, cigarettes, uncomplicated; Z20.822 Contact with and (suspected) exposure to COVID-19; Z91.048 Other nonmedicinal substance allergy status; Z79.899 Other long term (current) drug therapy
CPT/HCPCS: 0240U; 99283

== ENCOUNTER 2022-09-15 05:21 | Emergency (ER) | payer BC ==
[2022-09-15] MEDS ORDERED: Aspirin 81 MG Tab.Chew PO ONE (05:23)
[2022-09-15] MEDS ORDERED: Sodium Chloride 0.9% 1,000 ML IV ONE (05:23)
[2022-09-15 05:38] LABS: HEMATOCRIT 42.5 % (36.0-46.0); HEMOGLOBIN 15.2 g/dL (12.0-16.0); MEAN CORPUSCULAR HEMOGLOBIN 30.8 pg (27.0-32.0); MEAN CORPUSCULAR HGB CONC 35.8 g/dL (31.0-37.0); MEAN CORPUSCULAR VOLUME 86.2 fL (80.0-98.0); NRBC ABSOLUTE 0 K/uL; PLATELET COUNT,PLT 318 K/uL (150-400); RED BLOOD CELL COUNT 4.93 M/uL (4.30-5.90); WHITE BLOOD CELL COUNT,WBC 6.02 K/uL (4.0-11.0)
[2022-09-15 06:05] LABS: INR 1.05 (0.86-1.11); PTT,PARTIAL THROMBOPLSTIN TIME 28.1 SEC (23.9-30.7)
[2022-09-15 06:23] LABS: TSH ULTRASENSITIVE 3.88 uIU/mL (0.36-3.74)
[2022-09-15 06:24] LABS: BAND ABSOLUTE MAN 1.8; BAND PERCENT MAN 30 %; LYMPHOCYTES ABSOLUTE MAN 2.6 (0.6-2.4); LYMPHOCYTES PERCENT MAN 44 % (16.0-40.0); SEG NEUTROPHILS ABSOLUTE MAN 0.8 (1.4-5.7); SEG NEUTROPHILS PERCENT MAN 14 % (48.0-80.0)
[2022-09-15 06:25] LABS: BASOPHILS ABSOLUTE MAN 0.1 (0.0-0.1); BASOPHILS PERCENT MAN 1 % (0.0-1.5); EOSINOPHILS ABSOLUTE MAN 0.5 (0.0-0.7); EOSINOPHILS PERCENT MAN 8 % (0.0-7.0); MONOCYTES ABSOLUTE MAN 0.2 (0.0-0.8); MONOCYTES PERCENT MAN 3 % (0.0-15.0)
[2022-09-15 06:46] LABS: T4 FREE 1.14 ng/dL (0.76-1.46)
[2022-09-15 07:20] LABS: A/G RATIO 1.2 (0.9-1.6); ALBUMIN 3.8 g/dL (3.4-5.0); BILIRUBIN TOTAL 1.4 mg/dL (0.2-1.0); CALCIUM 8.7 mg/dL (8.5-10.1); CARBON DIOXIDE,CO2 20.7 mmol/L (21.0-32.0); EST CRCL DRUG DOSING (CG) 60.06 mL/min; MAGNESIUM 1.5 mg/dL (1.8-2.4); PROTEIN TOTAL,TP 7.1 g/dL (6.4-8.2)
[2022-09-15] MEDS ORDERED: Magnesium Sulfate (4.06 MEQ/ML) 5 GM/10 ML SDV IV STA (07:47)
[2022-09-15] MEDS ORDERED: Potassium Chloride 20 MEQ Tab.ER PO ONE (07:48)
[2022-09-15 07:59] LABS: APPEARANCE,URINE CLEAR; BILIRUBIN,URINE NEGATIVE (NEGATIVE); COLOR,URINE YELLOW; GLUCOSE,URINE NEGATIVE (NEGATIVE); KETONES,URINE NEGATIVE (NEGATIVE); LEUKOCYTE ESTERASE,URINE NEGATIVE (NEGATIVE); NITRITE,URINE NEGATIVE (NEGATIVE); OCCULT BLOOD,URINE NEGATIVE (NEGATIVE); PROTEIN,URINE NEGATIVE (NEGATIVE)
[2022-09-15 08:09] LABS: AMPHETAMINES SCREEN, URINE PRESUMPTIVE POSITIVE (CUTOFF=500); BARBITURATE SCREEN,URINE NEGATIVE (CUTOFF=200); BENZODIAZEPINES SCREEN,URINE NEGATIVE (CUTOFF=150); BUPRENORPHINE SCREEN,URINE NEGATIVE (CUTOFF=10); METHADONE SCREEN, URINE NEGATIVE (CUTOFF=200); METHAMPHETAMINES SCREEN, URINE PRESUMPTIVE POSITIVE (CUTOFF=500); OXYCODONE SCREEN,URINE NEGATIVE (CUT0FF=100); PCP SCREEN,URINE NEGATIVE (CUTOFF=25); PROPOXYPHENE SCREEN,URINE NEGATIVE (CUTOFF=300); THC SCREEN,URINE 20 NG/ML NEGATIVE (CUTOFF=50)
== END 2022-09-15 09:48 | disposition home or self-care (01) ==
LOC: MW.ED 05:21
DX: E83.42 Hypomagnesemia (principal); E87.6 Hypokalemia; I45.10 Unspecified right bundle-branch block; F14.90 Cocaine use, unspecified, uncomplicated; F15.90 Other stimulant use, unspecified, uncomplicated; R07.9 Chest pain, unspecified; I10 Essential (primary) hypertension; E03.9 Hypothyroidism, unspecified; Z79.899 Other long term (current) drug therapy; Z91.048 Other nonmedicinal substance allergy status
CPT/HCPCS: 36415; 71045; 80053; 80305; 81003; 83735; 84439; 84443; 84484; 84703; 85025; 85379; 85610; 85730; 93005; 96361; 96365; 99285; A9270; J3475; J7030; 93010; 99283

== ENCOUNTER 2023-11-25 11:19 | Emergency (ER) | payer SELFPAY ==
[2023-11-25 12:30] LABS: CORONAVIRUS COVID-19 NAA POSITIVE (NEGATIVE); INFLUENZA A NAA NEGATIVE (NEGATIVE); INFLUENZA B NAA NEGATIVE (NEGATIVE)
== END 2023-11-25 13:10 | disposition home or self-care (01) ==
LOC: MW.ED 11:19
DX: U07.1 COVID-19 (principal); E03.9 Hypothyroidism, unspecified; F17.210 Nicotine dependence, cigarettes, uncomplicated; Z91.048 Other nonmedicinal substance allergy status; Z79.890 Hormone replacement therapy; Z79.84 Long term (current) use of oral hypoglycemic drugs; Z79.899 Other long term (current) drug therapy; Z90.49 Acquired absence of other specified parts of digestive tract; Z75.8 Other problems related to medical facilities and other health care
CPT/HCPCS: 0240U; 99283